=== PATIENT | male | born 1950 | race Caucasian/White ===

== ENCOUNTER 2020-03-12 19:14 | Emergency (ER) | payer MEDICARE, SELFPAY ==
[2020-03-12 19:30] VITALS: BP 168/85; PULSE 64; RESP 16; TEMP 36.4; O2SAT 97
--- NOTE | 2020-03-12 19:31 | ED.ANXIETY ---
HPI - Anxiety General Chief Complaint: Anxiety Stated Complaint: Anxiety/high blood pressure Time Seen by Provider: 03/12/20 19:31 Source: patient and RN notes reviewed Mode of arrival: ambulatory Limitations: no limitations History of Present Illness HPI narrative: Patient states he has had a long history of anxiety. Been on Prozac in the past which seemed to work well. He did state his doctor changed him to Lexapro several months ago. Then about 4 weeks ago he became gradually getting more anxious. Went to his primary care physician and has Lexapro was increased. He says that has not helped and he seems be taking more of his 0.5 Ativan at home. He also uses Ambien for sleep. He does know of any particular situation that is causing increased anxiety. He does note that his blood pressure seems to be going up. They were watches blood pressure at home and when it is elevated that makes him anxious as well. He denies any family history of high blood pressure. complaint: anxiety Onset (ago): week(s) (4) Symptoms: other ( Elevated blood pressure) Severity: moderate Quality: constant Place: home History of similar episodes: Yes Provoking factors: emotional stress Relieving factors: nothing Exacerbating factors: thinking about event Associated symptoms: denies other symptoms Related Data Home Medications Medication Instructions Recorded Confirmed escitalopram oxalate 20 mg PO DAILY 03/12/20 03/12/20 lorazepam 0.5 mg PO TID PRN 03/12/20 03/12/20 rosuvastatin [Crestor] 5 mg PO EVERY OTHER DAY 03/12/20 03/12/20 Allergies Allergy/AdvReac Type Severity Reaction Status Date / Time No Known Allergies Allergy Verified 03/12/20 19:37 Review of Systems Review of Systems: All systems reviewed & are unremarkable except as noted in HPI and below PMFSH Past Medical History Medical History (Updated 03/12/20 @ 20:33 by Radames Smith MD) Anxiety Hyperlipidemia Surgical History Surgical History (Updated 03/12/20 @ 19:34 by Radames Smith MD) Hx of cholecystectomy Social History Social History (Updated 03/12/20 @ 19:34 by Radames Smith MD) Smoking status: Never smoker Alcohol intake: never Substance use: never Exam Const: General: healthy appearing, no acute distress and alert Nutritional Appearance: well nourished Orientation/consciousness: patient oriented x3 HENMT: Head: normal to inspection Mouth: Yes moist mucous membranes Eyes: Conjunctivae: conjunctivae normal Pupils: Equal, round and reactive pupils present EOM: EOMs intact bilaterally Neck: Neck: normal visual inspection Resp: Effort & Inspection: normal respiratory effort Auscultation: clear to auscultation bilaterally Cardio: Rate: regular rate Rhythm: regular rhythm GI: GI Palp: Yes Soft to palpation Auscultation: normal bowel sounds Back/Spine/Pelvis: Cervical Spine: cervical ROM normal Thoracic/Lumbar Spine: thoraco-lumbar ROM normal Skin: General skin exam: normal color Rashes: no rashes Neuro: General: patient oriented x3, moves all extremities and no focal motor deficits Speech: normal speech Gait exam (Neuro): Normal gait present Extrem: General: normal to inspection and no clubbing, cyanosis or edema Psych: Appearance: grossly normal and well kempt Mental Status: mental status grossly normal Affect: Anxious affect present Thought content: Yes Normal thought content present Course Course Emergency Course: Patient was significantly improved after mg blood pressure came down nicely. I discussed with him that he needs to change his medication for his anxiety to something different. In the interim may want to consider increasing his Ativan until he can get his new medication to therapeutic dose. Vital Signs Vital signs: Vital Signs Temperature 36.4 C L 03/12/20 19:30 Pulse Rate 64 03/12/20 19:30 Respiratory Rate 16 03/12/20 19:30 Blood Pressure 168/85 H 03/12/20 19:30 Pulse Oximetry 97 07
[2020-03-12 20:19] VITALS: BP 124/77; PULSE 58; RESP 16; O2SAT 96
[2020-03-12 20:40] VITALS: BP 124/72; PULSE 55; RESP 16; O2SAT 96
== END 2020-03-12 20:40 | disposition home or self-care (01) ==
PROVIDERS: Emergency Provider Emergency Medicine
DX: F41.9 Anxiety disorder, unspecified (principal)
CPT/HCPCS: 96372; 99282; 99283; J2060

== ENCOUNTER 2020-03-31 01:38 | Emergency (ER) | payer MEDICARE, SELFPAY ==
[2020-03-31 01:47] VITALS: BP 149/70; PULSE 63; RESP 16; TEMP 37; O2SAT 97
--- NOTE | 2020-03-31 02:25 | ED.ANXIETY ---
HPI - Anxiety General Chief Complaint: Anxiety Stated Complaint: panic attake Source: patient Mode of arrival: ambulatory Limitations: no limitations History of Present Illness HPI narrative: This 69-year-old male has a long history of general anxiety disorder which has been controlled on Lexapro 10 mg daily and occasional Ativan 0.5 mg. Approximately 6-8 weeks ago his anxiety started worsening. He was switched to Luvox 50 mg twice daily recently without improvement. His anxiety has been worse over the last few weeks. He feels like the Luvox has made him more tired, resulting in him not being as active as he had been. He has fears of having a heart attack and of losing control. Thiis afternoon those symptoms worsened. After taking a total of 1 mg of Ativan his symptoms abated after several hours. They returned later this evening. . He took Ativan 0.5 and 1:00 a.m. and no other 0.5 at 1:15. He arrived in the ED about 1:30 because his symptoms were not improving. Rating his anxiety on a 1-10 scale he rated his anxiety about 8 to 9. He was instructed not to take more than 1.5 mg Ativan/day. At his appointment several days ago he was given a referral to psychiatrist. He sometimes feels his heart racing. His heart rate this evening was 68 b.p.m.. His symptoms are associated with his palms getting sweaty but no trembling, shortness of breath, smothering, choking, chest discomfort, nausea, dizziness, chills, paresthesias or derealization. Pt's previoius EKGs have been normal. Recent blood work was normal, including cholesterol. Besides TITA and hyperlipidemia he is in great health. He has no hx of heart disease or abnormal EKG. Pt's in the exam room. She repeatedly said she told her he did not need to go to the E.D. because he wasn't having chest pain; that he's fearful all the time about a heart attack, at which point pt. corrected her saying it was not all the time. Related Data Home Medications Medication Instructions Recorded Confirmed escitalopram oxalate [Lexapro] 20 mg PO DAILY 03/12/20 03/31/20 lorazepam [Ativan] 0.5 mg PO TID PRN 03/12/20 03/31/20 rosuvastatin [Crestor] 5 mg PO EVERY OTHER DAY 03/12/20 03/31/20 zolpidem [Ambien] See Rx Instructions .ROUTE .COMPLEX 03/31/20 03/31/20 Allergies Allergy/AdvReac Type Severity Reaction Status Date / Time No Known Allergies Allergy Verified 03/12/20 19:37 Review of Systems Constitutional: Constitutional: Reports no additional constitutional complaints, Denies chills and Denies fever(s) ENT: Reports system reviewed and no additional complaints, except as documented Cardiovascular: Cardiovascular: Reports no additional cardiovascular complaints Respiratory: Respiratory: Reports no additional respiratory complaints Gastrointestinal: Gastrointestinal: Reports no additional gastrointestinal complaints Musculoskeletal: Comments: Oftentimes his anxiety is associated with a feeling his muscles and joints don't move in a fluid fashion. Neurologic: Reports system reviewed and no additional complaints, except as documented Psychiatric: Psychiatric: Denies suicidal ideation Comments: He has been discouraged about his worsening anxiety but has no thoughts of hurting himself. PMFSH Past Medical History Medical History (Updated 03/31/20 @ 02:52 by Jose Hernandez MD) Anxiety Hyperlipidemia Hyperlipidemia Surgical History Surgical History (Updated 03/12/20 @ 19:34 by Radames Smith MD) Hx of cholecystectomy Social History Social History (Updated 03/31/20 @ 02:58 by Jose Hernandez MD) Social History: twin 12 year olds and one 8 y.o. child. Smoking status: Never smoker Alcohol intake: never Substance use: never Gender identity (if verbalized by the patient): Male Sexual Orientation (if Verbalized by the Patient): Straight or Heterosexual Exam Const: Orientation/consciousness: patient oriented x3 HENMT: Mouth: Yes moist
[2020-03-31 02:31] VITALS: BP 140/67; PULSE 70; RESP 16; TEMP 36.6; O2SAT 98
== END 2020-03-31 02:34 | disposition home or self-care (01) ==
PROVIDERS: Emergency Provider Family Medicine
DX: F41.9 Anxiety disorder, unspecified (principal)
CPT/HCPCS: 99281; 99282

== ENCOUNTER 2020-04-11 09:43 | Emergency (ER) | payer MEDICARE, SELFPAY ==
--- NOTE | ~2020-04-11 | XR_ITS ---
EXAMINATION: XR chest 2V DATE: 04/11/2020 10:27 INDICATION: Epigastric abdominal pain. Weight loss. TECHNIQUE: Frontal and lateral views of the chest were obtained. COMPARISON: None. FINDINGS: The chest demonstrates clear lungs without pneumonia, pleural effusion, or pneumothorax. Th e heart size is normal. Surgical clips in the right upper quadrant are likely from cholecystectomy. IMPRESSION: 1. No acute cardiopulmonary disease. Reviewed, dictated and finalized at location B.
--- NOTE | 2020-04-11 09:48 | ECG_ITS ---
Measurements Intervals [place] Rate: 58 P: 64 SC: 154 QRS: 48 QRSD: 102 T: 51 QT: 404 QTc: 400 Interpretive Statements SINUS BRADYCARDIA BASELINE ARTIFACT- I, II, III, AVR, AVL, AVF, V4 BORDERLINE ECG Electronically Signed On 04-11-2020 10:16:47 CDT by Bill Armstrong D.O.
[2020-04-11 10:00] VITALS: BP 166/93; PULSE 68; RESP 16; TEMP 36.8; O2SAT 97
--- NOTE | 2020-04-11 10:08 | ED.ANXIETY ---
HPI - Anxiety General Chief Complaint: Anxiety Stated Complaint: anxiety Time Seen by Provider: 04/11/20 10:08 Source: patient and family Mode of arrival: ambulatory Limitations: no limitations History of Present Illness HPI narrative: 69-year-old man comes in today complaining of increased anxiety over the last few weeks. He states that his symptoms are getting worse and last night he was unable to sleep. States that he has discomfort in his abdomen but no nausea and denies headache, vomiting, chest pain, shortness breath. He states that he has a poor appetite and has lost 10 lb in the last month. He denies suicidal ideation and denies recent significant stressors. His doctor started him on fluvoxamine approximately 1 week ago. He takes Ativan 3 times a day, 0.25 in the morning, 0.5 in the afternoon, and 0.25 in the evening with Ambien. patient states that his doctor instructed him to decrease the Ativan dose to twice a day however he was unable to tolerate it and and is back to t.i.d. for the last week. MD complaint: anxiety Onset (ago): week(s) (3) Severity: moderate Quality: constant Place: home History of similar episodes: Yes Provoking factors: medication change Relieving factors: nothing Exacerbating factors: nothing Related Data Home Medications Medication Instructions Recorded Confirmed lorazepam [Ativan] 0.5 mg PO TID PRN 03/12/20 04/11/20 rosuvastatin [Crestor] 5 mg PO EVERY OTHER DAY 03/12/20 04/11/20 zolpidem [Ambien] See Rx Instructions .ROUTE .COMPLEX 03/31/20 04/11/20 fluvoxamine 50 mg PO DAILY 04/11/20 04/11/20 Allergies Allergy/AdvReac Type Severity Reaction Status Date / Time No Known Allergies Allergy Verified 03/12/20 19:37 Review of Systems Constitutional: Constitutional: Denies chills and Denies fever(s) Eyes: Eyes: Denies change in vision and Denies photophobia ENT: Denies dysphagia, Denies nasal congestion and Denies sore throat Cardiovascular: Cardiovascular: Denies chest pain and Denies radiating jaw, neck or arm pain Respiratory: Respiratory: Denies cough, Denies dyspnea and Denies wheezing Gastrointestinal: Gastrointestinal: Denies abdominal pain, Denies diarrhea, Denies nausea and Denies vomiting Musculoskeletal: Musculoskeletal: Denies arthralgias and Denies joint swelling Integumentary/Breasts: Skin/Breast: Denies pruritus, Denies erythema and Denies rash Neurologic: Denies vertigo, Denies dizziness, Denies syncope, Reports headache(s), Denies focal weakness and Denies numbness Psychiatric: Psychiatric: Reports anxiety, Denies homicidal ideation and Denies suicidal ideation Endocrine: Endocrine: Denies fatigue Hematologic/Lymphatic: Hematologic/Lymphatic: Denies easy bleeding and Denies easy bruising Allergic/Immunologic: Allergic/Immunologic: Denies lip swelling and Denies wheezing PMFSH Past Medical History Medical History Anxiety Hyperlipidemia Hyperlipidemia Surgical History Surgical History Hx of cholecystectomy Social History Social History Social History: twin 12 year olds and one 8 y.o. child. Smoking status: Never smoker Alcohol intake: never Substance use: never Gender identity (if verbalized by the patient): Male Exam Const: General: healthy appearing and alert Orientation/consciousness: patient oriented x3 Limitations: no limitations Other: [id number] acute distress. Flat affect. HENMT: Head: normal to inspection Ears: external ears normal, TM's normal bilaterally and EAC's normal Face and sinus: normal facial exam Mouth: Yes moist mucous membranes Throat: posterior oropharynx normal Eyes: Conjunctivae: conjunctivae normal Pupils: Equal, round and reactive pupils present EOM: EOMs intact bilaterally Resp: Effort & Inspection: normal respiratory
[2020-04-11 10:20] LABS: Basophils Absolute Auto 0.01 K/mm3 (0.00-0.10); Basophils Percent Auto 0.1 % (0.0-1.0); Eosinophils Absolute Auto 0.07 K/mm3 (0.02-0.50); Eosinophils Percent Auto 0.8 % (1.0-6.0); Hematocrit 41.5 % (37.0-46.0); Hemoglobin 14.4 g/dL (12.4-15.3); Immature Granulocyte Absolute 0.01 K/mm3 (0.00-0.00); Immature Granulocyte Percent A 0.1 % (0.0-0.0); Lymphocytes Absolute Auto 1.63 K/mm3 (1.10-4.50); Lymphocytes Percent Auto 19.2 % (18.0-42.0); Mean Corpuscular HGB Conc 34.7 g/dL (32.0-36.0); Mean Corpuscular Hemoglobin 30.3 pg (27.0-31.0); Mean Corpuscular Volume 87.2 fL (78.0-102.0); Monocytes Absolute Auto 0.76 K/mm3 (0.10-0.90); Neutrophils Percent Auto 70.8 % (50.0-70.0); Platelet Count Result 318 K/mm3 (150-420); Red Blood Count 4.76 M/mm3 (4.70-6.10); Red Cell Distribution Width 11.9 % (11.6-14.4); White Blood Count 8.5 K/mm3 (4.8-10.8)
[2020-04-11 10:33] LABS: D Dimer 0.19 mg/L (0.19-0.50)
[2020-04-11 10:34] LABS: Add Urine Microscopic? NO; Appearance Urine Clear (Clear); Bilirubin Urine Negative (Negative); Blood Urine Negative (Negative); Color Urine Yellow (Yellow); Glucose Urine UA Negative (Negative); Ketones Urine Negative (Negative); Leukocyte Esterase Ur Negative (Negative); Nitrate Urine Negative (Negative); Protein Urine Negative (Negative); Urobilinogen Urine 0.2 mg/dL (0.2-1.0)
[2020-04-11 10:48] LABS: Alanine Aminotransferase 45 U/L (16-63); Albumin Level 3.7 g/dL (3.4-5.0); Alkaline Phosphatase 86 U/L (46-116); Anion Gap 6 mmol/L (8-16); Aspartate Amino Transferase 34 U/L (15-37); Bilirubin,Total 0.6 mg/dL (0.00-1.00); Blood Urea Nitrogen 9 mg/dL (7-18); Calcium 8.9 mg/dL (8.5-10.1); Carbon Dioxide 30 mmol/L (21-32); Chloride 93 mmol/L (98-108); Estimated CRCL calculation 66 ml/min; Estimated Glomerular Filt Rate > 60; Glucose 109 mg/dL (70-99); Osmolality Calculated 267 mOsm/kg (285-295); Potassium 4.1 mmol/L (3.5-5.1); Sodium 129 mmol/L (136-145); Total Protein 7.2 g/dL (6.4-8.2)
[2020-04-11 10:51] LABS: Thyroid Stimulating Hormone Reflex 0.83 u/IU/mL (0.36-3.74)
[2020-04-11] MEDS: hydrOXYzine HCL 25 MG TABLET PO (11:37)
[2020-04-11 11:41] VITALS: RESP 13; O2SAT 99
== END 2020-04-11 11:40 | disposition home or self-care (01) ==
PROVIDERS: Emergency Provider Emergency Medicine; PCP Nurse Practitioner
DX: F41.9 Anxiety disorder, unspecified (principal); E78.5 Hyperlipidemia, unspecified
CPT/HCPCS: 36415; 71046; 80053; 81003; 84443; 85025; 85380; 93005; 99283; 99284; A9270

== ENCOUNTER 2020-04-26 17:53 | Emergency (ER) | payer MEDICARE, SELFPAY ==
--- NOTE | ~2020-04-26 | XR_ITS ---
EXAMINATION: XR abdomen obstructive series DATE: 04/26/2020 18:30 INDICATION: Constipation TECHNIQUE: Supine and upright views of the abdomen. FINDINGS: No prior studies for comparison. The visualized lung parenchyma is normal.. There is a nonobstructive bowel gas pattern. Large amount of retained fecal material in the colon. Gas and stool are seen throughout the colon to the level of the rectum. There is no free air. IMPRESSION: 1. No acute abdominal abnormality. Reviewed, dictated and finalized at location A.
--- NOTE | ~2020-04-26 | CT_ITS ---
EXAMINATION: CT abdomen pelvis w con DATE: 04/26/2020 19:11 INDICATION: Constipation. Diffuse abdominal pain. Increased white blood cell count. TECHNIQUE: Computed tomography (CT) of the abdomen and pelvis was performed with 100 cc Omnipaque 350 intravenous contrast. The dose-length product was 553.67 mGy-cm. Automated exposure control and iter ative reconstruction technique were employed. COMPARISON: None. FINDINGS: Lung bases are unremarkable. Heart size is normal. No significant pleural or pericardial ef fusion. There is atherosclerosis without aneurysm. Status post cholecystectomy. The liver, spleen, pancreas, adrenal glands and kidneys are unremarkable . No free air or free fluid. There is moderate colonic fecal loading. No lymphadenopathy. No acute os seous abnormality. IMPRESSION: 1. No acute abdominal abnormality. Fecal impaction of the colon and rectum. Reviewed, dictated and finalized at location A.
--- NOTE | 2020-04-26 18:05 | ECG_ITS ---
Measurements Intervals [place] Rate: 92 P: 73 PA: 147 QRS: 73 QRSD: 92 T: 51 QT: 341 QTc: 424 Interpretive Statements SINUS RHYTHM MINIMAL Q WAVES- INFERIOR LEADS BORDERLINE ECG Electronically Signed On 04-26-2020 21:22:48 CDT by Bill Armstrong D.O.
[2020-04-26 18:06] VITALS: BP 138/79; PULSE 108; RESP 24; TEMP 37; O2SAT 98
[2020-04-26 18:20] LABS: Hematocrit 43.4 % (37.0-46.0); Hemoglobin 15.3 g/dL (12.4-15.3); Mean Corpuscular HGB Conc 35.3 g/dL (32.0-36.0); Mean Corpuscular Hemoglobin 30.1 pg (27.0-31.0); Mean Corpuscular Volume 85.4 fL (78.0-102.0); Mean Platelet Volume 7.9 fl (8.7-11.0); Platelet Count Result 362 K/mm3 (150-420); Red Blood Count 5.08 M/mm3 (4.70-6.10); Red Cell Distribution Width 11.7 % (11.6-14.4)
[2020-04-26 18:31] LABS: White Blood Count 23.3 K/mm3 (4.8-10.8)
[2020-04-26 18:50] LABS: Alanine Aminotransferase 43 U/L (16-63); Albumin Level 3.9 g/dL (3.4-5.0); Alkaline Phosphatase 107 U/L (46-116); Anion Gap 9 mmol/L (8-16); Aspartate Amino Transferase 27 U/L (15-37); Bilirubin,Total 0.5 mg/dL (0.00-1.00); Blood Urea Nitrogen 12 mg/dL (7-18); Calcium 8.9 mg/dL (8.5-10.1); Carbon Dioxide 27 mmol/L (21-32); Chloride 91 mmol/L (98-108); Estimated CRCL calculation 67 ml/min; Estimated Glomerular Filt Rate > 60; Glucose 120 mg/dL (70-99); Osmolality Calculated 264 mOsm/kg (285-295); Potassium 4.2 mmol/L (3.5-5.1); Sodium 127 mmol/L (136-145); Thyroid Stimulating Hormone 1.11 uIU/mL (0.36-3.74); Total Protein 7.7 g/dL (6.4-8.2)
[2020-04-26 18:51] LABS: Lipase 135 U/L (73-393); Troponin I < 0.02 ng/mL (0.00-0.056)
[2020-04-26] MEDS: SODIUM CHLORIDE 0.9% IV 1,000 ML 999 ML IV CONT (18:51)
[2020-04-26 18:54] LABS: Lactic Acid 0.9 mmol/L (0.4-2.0)
[2020-04-26 19:44] VITALS: BP 135/78; PULSE 90; RESP 18; O2SAT 98
[2020-04-26 19:49] LABS: Add Urine Microscopic? YES; Appearance Urine Clear (Clear); Bilirubin Urine Negative (Negative); Blood Urine Negative (Negative); Color Urine Yellow (Yellow); Glucose Urine UA Negative (Negative); Ketones Urine Trace (Negative); Leukocyte Esterase Ur Negative (Negative); Nitrate Urine Negative (Negative); Protein Urine Negative (Negative); Specific Grav Ur 1.015 (1.010-1.020); Urobilinogen Urine 0.2 mg/dL (0.2-1.0)
[2020-04-26 19:59] LABS: Amorphous Sediment Urine Few; Bacteria Urine Trace /hpf; RBC Urine 0-2 /hpf (0-2); Squamous Epithelial Cell Urine Rare /hpf (Few); WBC Urine 0-3 /hpf (0-3)
--- NOTE | 2020-04-26 20:20 | ED.GENADULT ---
HPI - General Adult General Chief complaint: Unspecified Stated complaint: constipated History of Present Illness HPI narrative: this 69-year-old gentleman presents with constipation for the last 5 weeks has tried [id number] preparations with minimal relief. Had a small bowel movement approximately 1 week ago, currently there is no nausea vomiting no fever or chills no dysuria, does have difficulty with passing urine has a history of hyperlipidemia. Currently there is no nausea vomiting, does have some mild dull abdominal discomfort, his abdomen is soft. Currently no chest pain, no shortness of breath no fever or chills. Onset (ago): week(s) Radiation: abdomen Severity scale (1-10): 3 Quality: dull Associated symptoms: other ( constipation) Related Data Home Medications Medication Instructions Recorded Confirmed lorazepam [Ativan] 0.5 mg PO TID PRN 03/12/20 04/26/20 rosuvastatin [Crestor] 5 mg PO EVERY OTHER DAY 03/12/20 04/26/20 zolpidem [Ambien] See Rx Instructions .ROUTE .COMPLEX 03/31/20 04/26/20 fluvoxamine 50 mg PO DAILY 04/11/20 04/26/20 docusate sodium 100 mg PO DAILY 04/26/20 04/26/20 Allergies Allergy/AdvReac Type Severity Reaction Status Date / Time No Known Allergies Allergy Verified 03/12/20 19:37 Review of Systems Review of Systems: All systems reviewed & are unremarkable except as noted in HPI and below PMFSH Past Medical History Medical History Anxiety Hyperlipidemia Hyperlipidemia Surgical History Surgical History Hx of cholecystectomy Social History Social History Social History: twin 12 year olds and one 8 y.o. child. Smoking status: Never smoker Alcohol intake: never Substance use: never Gender identity (if verbalized by the patient): Male Sexual Orientation (if Verbalized by the Patient): Straight or Heterosexual Exam Const: General: no acute distress Orientation/consciousness: patient oriented x3 HENMT: Head: normal to inspection Eyes: Conjunctivae: conjunctivae normal Pupils: Equal, round and reactive pupils present Neck: Neck: normal visual inspection, no lymphadenopathy and no meningeal signs Chest: Chest palpation & inspection: normal inspection of the chest Resp: Effort & Inspection: normal respiratory effort Cardio: Rate: regular rate Rhythm: regular rhythm GI: GI Palp: Yes Soft to palpation and Yes Tenderness to palpation present (GI) : General: Yes no CVA tenderness Urinary Catheter: Urinary Catheter: urine clear Back/Spine/Pelvis: Back: no CVA tenderness Skin: General skin exam: normal color Rashes: no rashes Extrem: General: normal to inspection Psych: Appearance: grossly normal Mental Status: mental status grossly normal Affect: normal affect Thought content: Yes Normal thought content present Course Course Emergency Course: Patient had soapsuds enema, with some minimal disimpaction, with CT scan showing a large amount of stool in the rectal vault, did a manual disimpaction which are removed stool that was some in the rectal vault. Vital Signs Vital signs: Vital Signs Temperature 37.0 C 04/26/20 18:06 Pulse Rate 108 H 04/26/20 18:06 Respiratory Rate 24 H 04/26/20 18:06 Blood Pressure 138/79 04/26/20 18:06 Pulse Oximetry 98 04/26/20 18:06 Temperature 37.0 C 04/26/20 18:06 Pulse Rate 90 04/26/20 19:44 Respiratory Rate 18 04/26/20 19:44 Blood Pressure 135/78 04/26/20 19:44 Pulse Oximetry 98 04/26/20 19:44 Medical Decision Making Vital Signs Vital Signs: Vital Signs Temperature 37.0 C 04/26/20 18:06 Pulse Rate 108 H 04/26/20 18:06 Respiratory Rate 24 H 04/26/20 18:06 Blood Pressure 138/79 04/26/20 18:06 Pulse Oximetry 98 04/26/20 18:06 Temperature 37.0 C 04/26/20 18:06 Pulse Rate 90
[2020-04-26] MEDS: MAGNESIUM CITRATE 300 ML BTL PO (20:56)
[2020-04-26 21:16] VITALS: BP 136/77; PULSE 88; RESP 18; TEMP 36.8; O2SAT 98
== END 2020-04-26 21:17 | disposition home or self-care (01) ==
PROVIDERS: Emergency Provider Emergency Medicine; PCP Nurse Practitioner
DX: K59.09 Other constipation (principal); F41.9 Anxiety disorder, unspecified
CPT/HCPCS: 36415; 51701; 74019; 74177; 80053; 81001; 83605; 83690; 84443; 84484; 85027; 87040; 93005; 96361; 96365; 99283; 99284; A9270; J0696; J7030; Q9965

== ENCOUNTER 2020-06-08 16:01 | Outpatient (RCR) | payer MEDICARE, SELFPAY ==
--- NOTE | 2020-06-11 17:52 | PTOPEVAL ---
Thank you for referring Kendall Torres to [facility].? The patient is scheduled to be seen for therapy? ___3_x/week for 9 visits. Please review, sign, date and return this plan of care LUIS. I agree with and certify that the following plan of care is medically necessary. Referring Physician Date Admitting Provider: Attending Provider: Estela Cabezas, BENDER MACHINE Referring Provider: *PT Outpatient Evaluation Start: 06/08/20 16:06 Freq: Status: Active Protocol: Document 06/08/20 16:06 ANGIE (Rec: 06/08/20 16:50 ANGIE [email or web address]) Therapy Assessment Status Assessment Status Assessment Status Evaluation Outpatient Past Medical History Neurological History Hx Neurological Disorders No Significant History Cardiovascular History Hx Hypercholesterolemia Yes Respiratory History Hx Respiratory Disorders No Significant History Gastrointestinal History Hx Cholecystectomy Yes Genitourinary History Hx Genitourinary Disorders No Significant History Musculoskeletal History Hx Musculoskeletal Disorders No Significant History Hematological History Hx Hematological Disorders No Significant History Endocrine History Hx Endocrine Disorders No Significant History HEENT History Hx HEENT Disorders No Significant History Integumentary History Hx Skin Disorders No Significant History Reproductive History Hx Reproductive Disorders No Significant History Psychosocial History Hx Anxiety Yes Hx Depression Yes Pain History History of Any Previous or Ongoing No Significant History Instance of Pain Anesthesia History Hx Anesthesia Reactions No Significant History Evaluation Information Problem Diagnosis weakness Onset 04/08/20 Subjective Information Pt. reports that he had a Query Text:As Reported By Patient/ change in depression Family medication 2 months ago and states that he developed weakness and fatigue. He reports that doctor took him off the medication and he now has started lexapro. He states that he deals with alot of anxiety that makes activity difficult. 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 Pt. reports that he has been sedentary for the past 2 monhts. His is present and states that he sleeps most of the day. He
--- NOTE | 2020-06-12 16:59 | PCPTNOTE ---
patient called and cancelled appt due to not feeling well. ROSARIO
--- NOTE | 2020-06-13 14:56 | PCPTNOTE ---
patient called and cancelled appt today. ROSARIO
--- NOTE | 2020-07-19 15:53 | PCPTNOTE ---
patient called and cancelled appt today LJ
--- NOTE | 2020-08-10 11:36 | PCPTNOTE ---
Mr. Torres attended a total of 6 treatment sessions. He demonstrate poor compliance throughout the duration of his rehab. Talked with the pt. and his regarding the patient following up with his doctor regarding continued reports of fatigue and depression. Pt. has been discharged from our care due to lack of compliance with rehab in regards to home exercise performance and attendance. Franco Smith, MPT
== END 2020-07-24 14:48 | disposition home or self-care (01) ==
LOC: CHSPT 16:01
PROVIDERS: PCP Nurse Practitioner; Visit Provider Nurse Practitioner
DX: R53.1 Weakness (principal)
CPT/HCPCS: 97110; 97161; 97530

== ENCOUNTER 2020-07-16 12:54 | Emergency (ER) | payer MEDICARE, SELFPAY ==
--- NOTE | ~2020-07-16 | XR_ITS ---
XR chest 2V DATE: 07/16/2020 14:12 INDICATION: Chest pain for one day TECHNIQUE: 2 views COMPARISON: 04/11/2020 2 view chest FINDINGS: Normal heart size. No hilar or mediastinal enlargement. No pulmonary infiltrate or consolid ation, pleural effusion or pulmonary vascular congestion or pneumothorax. Surgical clips overlie the right upper quadrant, consistent with cholecystectomy. IMPRESSION: No active cardiopulmonary disease Status post cholecystectomy Reviewed, dictated and finalized at location B. ING AND COMPOSITE FABRICATOR
[2020-07-16 13:00] VITALS: BP 126/90; PULSE 98; RESP 20; TEMP 36.5; O2SAT 100
--- NOTE | 2020-07-16 13:01 | ED.CHESTPAIN ---
HPI - Chest Pain General Chief Complaint: Chest Pain Stated Complaint: chest pain Time Seen by Provider: 07/16/20 13:01 Source: patient, family and RN notes reviewed Mode of arrival: ambulatory Limitations: no limitations History of Present Illness HPI narrative: Patient states that last evening he began having some chest heaviness he said 4/10. He denies any other symptoms such as nausea, vomiting, shortness of breath, diaphoresis. The pain does not move anywhere. It seemed to go away last evening and then returned again today. He admitted to the nurse that he has been very anxious. He has have been bickering and he is afraid that she is going to leave him. MD complaint: chest heaviness Onset (ago): day(s) (1) Timing of current episode: episodic Prior episodes: No Onset: during rest Pain location: left chest Pain radiation: none Severity: mild Pain scale (0-10): 4 Quality: heaviness Relieving factors: nothing Exacerbating factors: stress Treatment prior to arrival: aspirin Risk Factors Coronary artery disease risk factors: none Thoracic aortic dissection risk factors: none Related Data Home Medications Medication Instructions Recorded Confirmed lorazepam [Ativan] 0.5 mg PO TID PRN 03/12/20 07/16/20 rosuvastatin [Crestor] 5 mg PO EVERY OTHER DAY 03/12/20 07/16/20 zolpidem [Ambien] 5 mg PO HS 03/31/20 07/16/20 fluvoxamine 50 mg PO DAILY 04/11/20 07/16/20 docusate sodium 100 mg PO DAILY 04/26/20 07/16/20 escitalopram oxalate 20 mg PO DAILY 07/16/20 07/16/20 Allergies Allergy/AdvReac Type Severity Reaction Status Date / Time No Known Allergies Allergy Verified 03/12/20 19:37 Review of Systems Constitutional: Constitutional: Denies chills and Denies fever(s) Eyes: Eyes: Reports no additional eye complaints ENT: Reports system reviewed and no additional complaints, except as documented Cardiovascular: Cardiovascular: Denies diaphoresis, Denies rapid heart rate and Denies slow heart rate Respiratory: Respiratory: Denies cough and Denies dyspnea Gastrointestinal: Gastrointestinal: Denies nausea and Denies vomiting Musculoskeletal: Musculoskeletal: Reports no additional musculoskeletal complaints Integumentary/Breasts: Skin/Breast: Reports system reviewed and no additional complaints, except as docu Neurologic: Reports system reviewed and no additional complaints, except as documented Psychiatric: Psychiatric: Reports anxiety PMFSH Past Medical History Medical History (Updated 07/16/20 @ 14:47 by Radames Smith MD) Anxiety Hyperlipidemia Surgical History Surgical History Hx of cholecystectomy Social History Social History Social History: twin 12 year olds and one 8 y.o. child. Smoking status: Never smoker Alcohol intake: never Substance use: never Gender identity (if verbalized by the patient): Male Exam Const: General: healthy appearing and no acute distress Nutritional Appearance: well nourished and thin Orientation/consciousness: patient oriented x3 Other: anxious HENMT: Head: normal to inspection Ears: external ears normal Eyes: Conjunctivae: conjunctivae normal Pupils: Equal, round and reactive pupils present EOM: EOMs intact bilaterally Neck: Neck: normal visual inspection Resp: Effort & Inspection: normal respiratory effort Auscultation: clear to auscultation bilaterally Cardio: Rate: regular rate Rhythm: regular rhythm Heart sounds: no murmurs GI: GI Palp: Yes Soft to palpation and No Tenderness to palpation present (GI) Auscultation: normal bowel sounds Back/Spine/Pelvis: Cervical Spine: cervical ROM normal Thoracic/Lumbar Spine: thoraco-lumbar ROM normal Skin: General skin exam: normal color Rashes: no rashes Neuro: General: patient oriented x3, moves all extremities and no focal motor deficits Speech: normal speech Gait exam (Neur
--- NOTE | 2020-07-16 13:11 | ECG_ITS ---
Measurements Intervals [place] Rate: 86 P: 57 CA: 116 QRS: 73 QRSD: 91 T: 43 QT: 358 QTc: 430 Interpretive Statements SINUS RHYTHM WITH SHORT CA INTERVAL DELAYED PRECORDIAL R/S TRANSITION MINIMAL Q WAVES- INFERIOR LEADS BORDERLINE ECG Electronically Signed On 07-16-2020 15:00:59 [employer] by Bill Armstrong D.O.
[2020-07-16 13:30] VITALS: BP 116/86; PULSE 94; RESP 16; O2SAT 100
[2020-07-16 13:48] LABS: Basophils Absolute Auto 0.02 K/mm3 (0.00-0.10); Basophils Percent Auto 0.2 % (0.0-1.0); Eosinophils Absolute Auto 0.15 K/mm3 (0.02-0.50); Eosinophils Percent Auto 1.4 % (1.0-6.0); Hematocrit 40.8 % (37.0-46.0); Immature Granulocyte Absolute 0.04 K/mm3 (0.00-0.00); Immature Granulocyte Percent A 0.4 % (0.0-0.0); Lymphocytes Absolute Auto 2.14 K/mm3 (1.10-4.50); Lymphocytes Percent Auto 20.3 % (18.0-42.0); Mean Corpuscular HGB Conc 34.3 g/dL (32.0-36.0); Mean Corpuscular Hemoglobin 29.8 pg (27.0-31.0); Mean Corpuscular Volume 86.8 fL (78.0-102.0); Mean Platelet Volume 8.2 fl (8.7-11.0); Monocytes Absolute Auto 0.81 K/mm3 (0.10-0.90); Monocytes Percent Auto 7.7 % (2.0-11.0); Neutrophils Absolute Auto 7.4 K/mm3 (1.7-7.2); Platelet Count Result 385 K/mm3 (150-420); Red Cell Distribution Width 12.1 % (11.6-14.4); White Blood Count 10.5 K/mm3 (4.8-10.8)
[2020-07-16 14:00] VITALS: BP 132/84; PULSE 83; RESP 15; O2SAT 100
[2020-07-16 14:10] LABS: Alanine Aminotransferase 35 U/L (16-63); Albumin Level 3.7 g/dL (3.4-5.0); Alkaline Phosphatase 79 U/L (46-116); Anion Gap 6 mmol/L (8-16); Aspartate Amino Transferase 24 U/L (15-37); Bilirubin,Total 0.4 mg/dL (0.00-1.00); Blood Urea Nitrogen 15 mg/dL (7-18); Calcium 9.1 mg/dL (8.5-10.1); Carbon Dioxide 28 mmol/L (21-32); Chloride 98 mmol/L (98-108); Estimated CRCL calculation 72 ml/min; Estimated Glomerular Filt Rate > 60; Glucose 103 mg/dL (70-99); Osmolality Calculated 274 mOsm/kg (285-295); Potassium 4.5 mmol/L (3.5-5.1); Sodium 132 mmol/L (136-145); Total Protein 7.2 g/dL (6.4-8.2)
[2020-07-16 14:11] LABS: Troponin I < 0.02 ng/mL (0.00-0.056)
[2020-07-16 14:12] LABS: CRP < 0.2 mg/dL (0.0-0.9)
[2020-07-16] MEDS: LORazepam (*CRX) 0.5 MG TABLET PO (14:28)
[2020-07-16 14:30] VITALS: BP 126/81; PULSE 73; RESP 14; O2SAT 100
[2020-07-16 14:58] VITALS: BP 141/86; PULSE 85; RESP 18; O2SAT 98
== END 2020-07-16 15:03 | disposition home or self-care (01) ==
PROVIDERS: Emergency Provider Emergency Medicine; PCP Family Medicine
DX: F41.9 Anxiety disorder, unspecified (principal); R07.89 Other chest pain
CPT/HCPCS: 36415; 71046; 80053; 84484; 85025; 86140; 93005; 99283; 99284; A9270

== ENCOUNTER 2023-02-19 22:27 | Emergency (ER) | payer MEDICARE, SELFPAY ==
[2023-02-19] VITALS (8 sets, daily range): BP systolic 105–159; BP diastolic 74–87; PULSE 113–175; RESP 11–20; TEMP 36.6–36.8; O2SAT 95–98
--- NOTE | ~2023-02-19 | XR_ITS ---
EXAMINATION: XR chest 1V portable Exam Date/Time: 02/19/2023 22:40 CDT HISTORY: chest pain with shortness of breath/TACHYCARDIA Comparison: 07/16/2020. RESULT: Lines, tubes, and devices: None. Lungs and pleura: Streaky bibasilar pulmonary opacities. Cardiomediastinal silhouette: Stable. Other: No acute osseous or upper abdominal finding. IMPRESSION: No acute cardiopulmonary process. Bibasilar scar/atelectasis. Reviewed, dictated and finalized at location K.
--- NOTE | 2023-02-19 22:34 | ECG_ITS ---
Measurements Intervals [place] Rate: 177 P: [place]: 0 QRS: 42 QRSD: 95 T: 60 QT: 222 QTc: 381 Interpretive Statements ATRIAL FIBRILLATION WITH RAPID VENTRICULAR RESPONSE NONSPECIFIC ST ABNORMALITY ABNORMAL ECG COMPARED TO ECG 07/16/2020 13:25:21 ATRIAL FIBRILLATION NOW PRESENT Electronically Signed On 02-20-2023 8:01:47 CDT by Franco Reyna M.D.
[2023-02-19 22:45] LABS: Basophils Absolute Auto 0.02 K/mm3 (0.00-0.10); Basophils Percent Auto 0.1 % (0.0-1.0); Eosinophils Absolute Auto 0.08 K/mm3 (0.02-0.50); Eosinophils Percent Auto 0.6 % (1.0-6.0); Hematocrit 42.1 % (37.0-46.0); Hemoglobin 13.8 g/dL (12.4-15.3); Immature Granulocyte Absolute 0.06 K/mm3 (0.00-0.00); Immature Granulocyte Percent A 0.4 % (0.0-0.0); Lymphocytes Absolute Auto 3.79 K/mm3 (1.10-4.50); Lymphocytes Percent Auto 27.5 % (18.0-42.0); Mean Corpuscular HGB Conc 32.8 g/dL (32.0-36.0); Mean Corpuscular Hemoglobin 29.8 pg (27.0-31.0); Mean Corpuscular Volume 90.9 fL (78.0-102.0); Mean Platelet Volume 8.9 fl (8.7-11.0); Monocytes Percent Auto 7.3 % (2.0-11.0); Neutrophils Absolute Auto 8.8 K/mm3 (1.7-7.2); Neutrophils Percent Auto 64.1 % (50.0-70.0); Platelet Count Result 291 K/mm3 (150-420); Red Blood Count 4.63 M/mm3 (4.70-6.10); Red Cell Distribution Width 12.7 % (11.6-14.4); White Blood Count 13.8 K/mm3 (4.8-10.8)
[2023-02-19] MEDS: ASPIRIN 81 MG CHEWABLE TABLET 324 MG PO (22:46)
[2023-02-19] MEDS: dilTIAZem HCl INJ 25 MG/5 ML VIAL 5 MG IV PUSH ×3 (22:49→23:32)
[2023-02-19 22:56] LABS: Partial Thromboplastin Time 25.5 SEC (23.90-30.70); Prothrombin Time 10.9 Seconds (9.50-12.10)
[2023-02-19 22:57] LABS: D Dimer 0.19 mg/L (0.19-0.50)
[2023-02-19 23:06] LABS: Alanine Aminotransferase 41 U/L (16-63); Albumin Level 3.9 g/dL (3.4-5.0); Alkaline Phosphatase 90 U/L (46-116); Anion Gap 6 mmol/L (8-16); Aspartate Amino Transferase 42 U/L (15-37); Bilirubin,Total 0.4 mg/dL (0.00-1.00); Blood Urea Nitrogen 19 mg/dL (7-18); Calcium 8.3 mg/dL (8.5-10.1); Carbon Dioxide 32 mmol/L (21-32); Chloride 100 mmol/L (98-108); Estimated CRCL calculation 62 ml/min; Estimated Glomerular Filt Rate > 60; Glucose 96 mg/dL (70-99); Lipase 45 U/L (16-77); NT Pro B Type Natriuretic Pept 334 pg/mL (0-125); Osmolality Calculated 288 mOsm/kg (285-295); Potassium 4.1 mmol/L (3.5-5.1); Sodium 138 mmol/L (136-145); Thyroid Stimulating Hormone 1.82 uIU/mL (0.36-3.74); Total Protein 7.5 g/dL (6.4-8.2)
[2023-02-19 23:09] LABS: CRP < 0.5 mg/dL (0.0-0.9)
[2023-02-19 23:10] LABS: Troponin I 8.1 ng/L (0.00-60.4)
[2023-02-19 23:45] LABS: Appearance Urine Clear (Clear); Bilirubin Urine Negative (Negative); Blood Urine Negative (Negative); Color Urine Light Yellow (Yellow); Glucose Urine UA Negative (Negative); Ketones Urine Negative (Negative); Leukocyte Esterase Ur Negative LEU/UL (Negative); Nitrate Urine Negative (Negative); Protein Urine Negative (Negative); Urobilinogen Urine 0.2 mg/dL (0.2-1.0)
[2023-02-19 23:47] LABS: Add Urine Microscopic? NO
[2023-02-19 23:52] LABS: Amphetamine Screen Urine Negative (Negative); Barbiturate Screen Urine Negative (Negative); Benzodiazepines Screen Urine Negative (Negative); Cannabinoid Screen Urine Negative (Negative); Cocaine Screen Urine Negative (Negative); Methadone Screen Urine Negative (Negative); Opiate Screen Urine Negative (Negative); Phencyclidine Screen Urine Negative (Negative)
[2023-02-19] MEDS: SODIUM CHLORIDE 0.9% IV 500 ML 999 ML IV CONT (23:54)
[2023-02-20] VITALS (16 sets, daily range): BP systolic 106–126; BP diastolic 74–80; PULSE 99–134; RESP 9–27; TEMP 36.7–37.2; O2SAT 95–97
--- NOTE | 2023-02-20 00:14 | ED.ARRPALP ---
HPI - Arrhythmia/Palpitations General Chief Complaint: Arrhythmia/Palpitations Stated Complaint: Chest Pain Time Seen by Provider: 02/19/23 22:32 Source: patient and family Mode of arrival: ambulatory Limitations: no limitations History of Present Illness HPI narrative: this is a 72-year-old male that presents with a rapid heart rate with some atrial fibrillation and heart rate in the 160s patient's vitals are stable initially blood pressure 159/87 with a heart rate of 175 there is currently no chest pain no shortness of breath no nausea vomiting abdominal pain no dysuria no fever chills. The patient has a history of hyperlipidemia and depression and anxiety. Patient apparently was outdoors doing yd work and according to patient became overheated came in doors felt a little clammy and notice that he was having palpitations and presented to the emergency department. complaint: rapid heart beat Onset (ago): hour(s) Duration: constant Severity: moderate Context: occurred during rest Arrhythmia history: atrial fibrillation and SVT Associated symptoms: denies other symptoms Related Data Home Medications Medication Instructions Recorded Confirmed rosuvastatin 5 mg tablet (Crestor) 5 mg PO EVERY OTHER DAY 03/12/20 02/19/23 escitalopram oxalate 20 mg tablet 20 mg PO DAILY 07/16/20 02/19/23 Allergies Allergy/AdvReac Type Severity Reaction Status Date / Time No Known Allergies Allergy Verified 03/12/20 19:37 Review of Systems Review of Systems: All systems reviewed & are unremarkable except as noted in HPI and below PMFSH Past Medical History Medical History Anxiety Hyperlipidemia Surgical History Surgical History Hx of cholecystectomy Social History Social History Social History: twin 12 year olds and one 8 y.o. child. Smoking status: Never smoker Alcohol intake: never Substance use: never Gender identity (if verbalized by the patient): Male Sexual Orientation (if Verbalized by the Patient): Straight or Heterosexual Exam Const: General: healthy appearing Nutritional Appearance: well nourished Orientation/consciousness: patient oriented x3 Limitations: no limitations HENMT: Head: normal to inspection Eyes: Conjunctivae: conjunctivae normal Pupils: Equal, round and reactive pupils present Neck: Neck: normal visual inspection Chest: Chest palpation & inspection: normal inspection of the chest Resp: Effort & Inspection: normal respiratory effort Auscultation: clear to auscultation bilaterally Cardio: Rate: regular rate Rhythm: regular rhythm GI: Auscultation: normal bowel sounds Urinary Catheter: Urinary Catheter: patent and draining Back/Spine/Pelvis: Back: no CVA tenderness Skin: General skin exam: normal color Rashes: no rashes Neuro: General: patient oriented x3 Cranial nerves: Yes Nystagmus not present Extrem: General: normal to inspection Psych: Mental Status: mental status grossly normal Course Course Emergency Course: This is a 72-year-old gentleman with some no history of atrial fibrillation, nonsmoker nondrinker past medical history of hyperlipidemia and anxiety. EKG shows that he has atrial fibrillation with a rapid ventricular response this is new onset AFib, had blood work with negative troponin and negative D-dimer with BNP of 334, chest x-ray performed shows no acute cardiopulmonary process. Patient received a total of 20mg bolus of Cardizem heart rate from 175 down to 1 teens and will start a Cardizem drip and start patient on Lovenox. spoke to hospitalist at [place] which accepted the patient for transfer. Vital Signs Vital signs: Vital Signs Temperature 36.6 C 02/19/23 22:30 Pulse Rate 175 H 02/19/23 22:30 Respiratory Rate 20 02/19/23 22:30 Blood Pressure 159/87 H
[2023-02-20] MEDS: dilTIAZem 100 MG/100 ML 100 MG/100 ML BAG IV CONT (00:28)
[2023-02-20] MEDS: dilTIAZem HCl INJ 25 MG/5 ML VIAL 5 MG IV PUSH (00:28)
[2023-02-20] MEDS: APIXABAN 2.5 MG TABLET 5 MG PO (00:30)
--- NOTE | 2023-02-20 02:46 | PC.NURSE ---
Report given to [facility] for transfer. Pt stable at d/c c VSS, Afib on monitor c rate of 109.
== END 2023-02-20 02:49 | disposition short-term general hospital (02) ==
PROVIDERS: Emergency Provider Emergency Medicine; PCP Family Medicine
DX: I48.20 Chronic atrial fibrillation, unspecified (principal); R06.02 Shortness of breath; E78.5 Hyperlipidemia, unspecified; F41.9 Anxiety disorder, unspecified; F32.A Depression, unspecified; Z79.899 Other long term (current) drug therapy
CPT/HCPCS: 36415; 71045; 80053; 80307; 81003; 83690; 83880; 84443; 84484; 85025; 85380; 85610; 85730; 86140; 93005; 96365; 96366; 96376; 99285; A9270; J7040

== ENCOUNTER 2023-02-20 06:25 | Observation (INO) | payer MEDICARE, SELFPAY ==
[2023-02-20] VITALS (19 sets, daily range): BP systolic 99–116; BP diastolic 55–77; PULSE 52–124; RESP 17–20; TEMP 35.6–36.6; O2SAT 96–100; BMI 30.7
--- NOTE | 2023-02-20 | EST_ITS ---
Patient Info Name: Kendall Torres Age: 72 years : 1950 Gender: Male Ht: 68 in Wt: 201 lbs BSA: 2.12 m2 Exam Date: 02/20/2023 11:30 AM Exam Location: [facility] Stress Patient Status: Inpatient Admit Date: 02/20/2023 Staff Ordering Physician: Bill Armstrong DO Attending Provider: Tonya Romo MD Exercise Technologist: Elizabeth Corral RDCS Exercise Physician: Bill Armstrong DO Exam Type: CA stress judy w NM Study Info Indications I48.1 - Persistent atrial fibrillation A regadenoson stress test was performed. Summary 1. 1. Negative lexiscan stress test for ischemic ST changes by ECG criteria. 2. 2. Relative hypotension. 3. 3. Nuclear scan to follow and will be reported separately. Please correlate with it. 4. 4. Patient informed of the above results. Protocol: Lexiscan Stress ECG Details Stage: REST Duration (min): 0 min : 46 sec HR (bpm): 115 SBP (mmHg): 98 DBP (mmHg): 66 Stage: REST Duration (min): 10 min : 29 sec HR (bpm): 91 SBP (mmHg): 98 DBP (mmHg): 66 Stage: STAGE 1 Duration (min): 1 min : 0 sec HR (bpm): 109 SBP (mmHg): 86 DBP (mmHg): 66 Stage: RECOVERY Duration (min): 1 min : 0 sec HR (bpm): 122 SBP (mmHg): 87 DBP (mmHg): 66 Stage: RECOVERY Duration (min): 2 min : 0 sec HR (bpm): 124 SBP (mmHg): 87 DBP (mmHg): 66 Stage: RECOVERY Duration (min): 3 min : 0 sec HR (bpm): 136 SBP (mmHg): 88 DBP (mmHg): 65 Stage: RECOVERY Duration (min): 3 min : 13 sec HR (bpm): 120 SBP (mmHg): 88 DBP (mmHg): 65 Rest HR: 91 bpm Peak HR: 138 bpm Rest Sys BP: 98 mmHg Peak Sys BP: 88 mmHg Max Pred HR: 150 bpm % Max Pred HR: 92 % Target HR: 128 bpm Max RPP: 12,144 bpm*mmHg Termination Reason: Completed protocol Cardiac Symptoms: Shortness of breath Total Time: 1 min : 0 sec Rest Parra BP: 66 mmHg Peak Parra BP: 65 mmHg Total Dose: 0.4 mg Resting ECG Atrial fibrillation with variable heart rate. Stress ECG No ST changes. Arrhythmias No other. Report Signatures
--- NOTE | 2023-02-20 | ECHO_ITS ---
Patient Info Name: Kendall Torres Age: 72 years : 1950 Gender: Male Ht: 68 in Wt: 201 lbs BSA: 2.12 m2 HR: 104 bpm BP: 110 / 77 mmHg Heart Rhythm: Atrial Fibrillation Technical Quality: Fair Exam Date: 02/20/2023 9:30 AM Exam Location: [facility] Pulmonary Patient Status: Outpatient Admit Date: 02/20/2023 Staff Ordering Physician: Tonya Romo MD Professor Of Vegetable Science: Nataliya Graham RDCS Attending Provider: Tonya Romo MD Referring Physician: Demetrius MORENO; Exam Type: CA echo doppler color flow Study Info Indications - new onset afib Complete two-dimensional, color flow and Doppler transthoracic echocardiogram is performed. Summary 1. Complete two-dimensional, color flow and Doppler transthoracic echocardiogram is performed. 2. Left ventricular chamber dimension is normal. 3. Left ventricular systolic function is normal, estimated at 60-65%. 4. There is mild concentric increased left ventricular wall thickness. 5. The left ventricular diastolic function is abnormal. 6. E/e' 10 is mildly elevated. 7. Atrial fibrillation. 8. Left atrial chamber dimension is mildly enlarged. 9. There is trace mitral valve regurgitation. 10. There is trace tricuspid valve regurgitation. 11. No pulmonary hypertension, estimated pulmonary arterial systolic pressure is 29 mmHg. Left Ventricle E/e' 10 is mildly elevated. Atrial fibrillation. Left ventricular chamber dimension is normal. Left ventricular systolic function is normal, estimated at 60-65%. There is mild concentric increased left ventricular wall thickness. The left ventricular diastolic function is abnormal. Right Ventricle Right ventricular chamber dimension is normal. Right ventricular systolic function is normal. Left Atria Left atrial chamber dimension is mildly enlarged. Right Atria Right atrial chamber dimension is normal. Aortic Valve The aortic valve is trileaflet. There is no aortic valve stenosis. There is no aortic valve regurgitation. Pulmonic Valve There is no pulmonic regurgitation. Mitral Valve There is no mitral valve stenosis. There is trace mitral valve regurgitation. Tricuspid Valve There is trace tricuspid valve regurgitation. No pulmonary hypertension, estimated pulmonary arterial systolic pressure is 29 mmHg. Pericardium/Pleural There is no pericardial effusion. Inferior Vena Cava Normal inferior vena cava with >50% collapse upon inspiration consistent with normal right atrial pressure, 5 mmHg. Aorta The aortic root size at the sinus of Valsalva is normal. Left Ventricular Outflow Tract Name Value Normal LVOT 2D LVOT Diameter 2.0 cm LVOT Doppler LVOT Peak Gradient 1 mmHg LVOT Mean Gradient 1 mmHg LVOT VTI 14 cm LVOT VTI/AV VTI Ratio 0.9 LVOT Stroke Volume 47 ml LVOT CO 3.5 l/min LVOT CI 1.7 l/min/m2 Pulmonic Valve Name Value Normal
--- NOTE | ~2023-02-20 | NM_ITS ---
EXAMINATION: NM judy stress w perfusion DATE: 02/20/2023 13:21 INDICATION: Atrial fibrillation TECHNIQUE: Rest images were obtained following intravenous administration of 9.0 mCi Tc99m tetrofosmi n (Myoview). The patient was infused intravenously with Lexiscan (Regadenoson). Then, 29.4 mCi Tc99m tetrofosmin (Myoview) was administered intravenously, and stress images were obtained. Data was recon structed into short axis and horizontal and vertical long axis SPECT images. Gated SPECT images were also obtained. COMPARISON: None. FINDINGS: There is no definite reversible or fixed perfusion abnormality to suggest ischemia or infar ction. There is normal left ventricular chamber size, wall motion and ejection fraction. Left ventr icular ejection fraction measures 67%. IMPRESSION: 1. Normal myocardial perfusion at rest and during stress. 2. Left ventricular ejection fraction measuring 67%. Reviewed, dictated and finalized at location A.
--- NOTE | 2023-02-20 03:44 | ADMGEN ---
This patient, Kendall Torres, was admitted to IMU Room 210-01 on 02/20/23 at 0330. Patient/family oriented to hospital policies and general routines including ID bracelet, bed and alarms, visiting hours, pain management, procedures, bathroom and other care routines, personal items, smoking policy, room service/diet, and visiting hours. Information on how to activate the Rapid Response Team has been discussed. Patient/Family are encouraged to report perceived risks to care and to ask questions if they do not understand what they are told or what they should do.
--- NOTE | 2023-02-20 03:45 | PM.IMHP ---
H&P: HPI History of Present Illness Date/Time: 02/20/23 03:45 Chief Complaint: Palpitation Narrative: Patient is a 72-year-old male with past medical history of hyperlipidemia and depression coming in for palpitation. Patient Apparently was outdoors doing yard work and according to patient became overheated, came indoors felt a little clammy and noticedthat he was having palpitations. On initial presentation to the emergency department in [place] patient supposedly had heart rate of 175 and showed atrial fibrillation on telemetry. He was given Cardizem IV push 20 mg IV and started on Cardizem drip. Was also started on Eliquis. Patient had blood testing which showed normal TSH and troponin. His BNP was slightly elevated at over 300. Patient was referred to Cardiology and recommendation was to continue with the Cardizem drip, no indication for further antiarrhythmics including amiodarone as heart rate was already going down. Patient was transferred from [place] ER for further medical care. Patient currently seen in the room. He is awake, alert oriented x4. Appears comfortable and in no distress. He denies any chest pain, shortness of breath, fever or coughing. He still feels some palpitations. Denies any diarrhea, dysuria, suicidal or homicidal ideation. He denies a history of coronary artery disease, diabetes or CVA. No history of congestive heart failure. He says he was just seen by his PCP recently for his yearly checkup and was given a clean bill of health. No history of bleeding. Review of Systems Review of Systems: no fever or weight loss no vision changes, no eye discharge no throat pain, no hoarseness, no lymphadenopathy no chest pain, positive palpitations no coughing, no wheezing no abdominal pain, no diarrhea, no nausea, no vomiting no dysuria, no vaginal discharge no leg swelling, no edema no suicidal or homicidal ideation PMFSH Past Medical History Medical History Anxiety Hyperlipidemia Surgical History Surgical History Hx of cholecystectomy Social History Social History Social History: twin 12 year olds and one 8 y.o. child. Smoking status: Never smoker Alcohol intake: never Substance use: never Lack of Transportation: No Lack of Food: Never True Current Housing: I Have Housing Concerned About Future Housing: No Difficulty Paying Gas/Electric Bills: No Difficulty Paying for Meds: No Currently Unemployed: No Education: Decline to Answer Difficulty w/ Childcare or Family Care: No Gender identity (if verbalized by the patient): Male Sexual Orientation (if Verbalized by the Patient): Straight or Heterosexual Spiritual care concerns: No Meds Home Medications and Allergies Home Medications Medication Instructions Recorded Confirmed Type rosuvastatin 5 mg tablet (Crestor) 5 mg PO EVERY OTHER DAY 03/12/20 02/20/23 History escitalopram oxalate 20 mg tablet 20 mg PO HS 07/16/20 02/20/23 History Allergies Allergy/AdvReac Type Severity Reaction Status Date / Time No Known Allergies Allergy Verified 03/12/20 19:37 Exam Narrative: general- awake, alert, oriented, no distress heent- perrl, no nystagmus, no throat swelling, no dicharge chest- clear breath sounds, no wheezes, rales, no crackles heart- s1, s2, irregular rate and rhythm, no gallops or murmurs abdomen- soft, bowel sounds heard, no rebound or tenderness extremities- no edema or cyanosis psych- no suicidal or homicidal ideation neuro- moves all extremities, no focal neurologic deficit, mentation intact H&P: Results ECG Interpretation: Atrial fibrillation Imaging Chest x-ray: Radiologist's impression: EXAMINATION:? XR chest 1V portable IMPRESSION: No acute cardiopulmonary process. Bibasilar scar/atelectas
[2023-02-20] MEDS: dilTIAZem 100 MG/100 ML 100 MG/100 ML BAG IV CONT (05:12)
[2023-02-20 05:38] LABS: Troponin I 0.023 ng/mL (0.000-0.034)
--- NOTE | 2023-02-20 07:52 | PM.CNCAR ---
Assessment and Plan Assessment and plan (1) Atrial fibrillation with RVR: Code(s): I48.91 - Unspecified atrial fibrillation Status: Acute Assessment and Plan: Probably due to age. [id number] 1. On Diltiazem drip for rate control. Start Flecainide 100 mg every 12 hours. Start aspirin 325 mg daily. Obtain echo. Obtain lexiscan myoview stress test. If above tests are OK and HR is improved, anticipate he will be able to go home later today, and f/u with me in 1 week in [place] office. (2) Hyperlipidemia: Qualifiers: Hyperlipidemia type: unspecified Qualified Code(s): E78.5 - Hyperlipidemia, unspecified Code(s): E78.5 - Hyperlipidemia, unspecified Status: Acute Assessment and Plan: On Rosuvastatin. History of Present Illness History of Present Illness Consult date/time: 02/20/23 07:52 Reason For Visit: New Onset AFib w/RVR Narrative: 72 yr old man presented to [place] ER last night for palpitations. He has a history of dyslipidemia and anxiety. Reports he was out working in yard yesterday, felt overheated, came into house and felt rapid palpitations. He went to [place] ER and found to be in rapid atrial fibrillation. Started on Diltiazem drip and transferred here. Currently still in atrial fib. Normally he can walk a mile without any problems. Denies chest pain, sob, orthopnea, PND, edema, dizziness. Review of Systems Review of Systems: All systems reviewed & are unremarkable except as noted in HPI and below Cardiovascular: Cardiovascular: Reports as per HPI, Denies chest pain and Reports irregular heart rhythm Respiratory: Respiratory: Reports as per HPI and Denies dyspnea Gastrointestinal: Gastrointestinal: Reports as per HPI and Denies abdominal pain Genitourinary: Genitourinary: Reports as per HPI and Denies dysuria Musculoskeletal: Musculoskeletal: Reports as per HPI Neurologic: Reports as per HPI, Denies dizziness and Denies syncope [facility] Past Medical History Medical History Anxiety Hyperlipidemia Surgical History Surgical History Hx of cholecystectomy Social History Social History Social History: twin 12 year olds and one 8 y.o. child. Smoking status: Never smoker Alcohol intake: never Substance use: never Lack of Transportation: No Lack of Food: Never True Current Housing: I Have Housing Concerned About Future Housing: No Difficulty Paying Gas/Electric Bills: No Difficulty Paying for Meds: No Currently Unemployed: No Education: Decline to Answer Difficulty w/ Childcare or Family Care: No Gender identity (if verbalized by the patient): Male Sexual Orientation (if Verbalized by the Patient): Straight or Heterosexual Spiritual care concerns: No Meds Home Medications and Allergies Home Medications Medication Instructions Recorded Confirmed Type rosuvastatin 5 mg tablet (Crestor) 5 mg PO EVERY OTHER DAY 03/12/20 02/20/23 History escitalopram oxalate 20 mg tablet 20 mg PO HS 07/16/20 02/20/23 History Allergies Allergy/AdvReac Type Severity Reaction Status Date / Time No Known Allergies Allergy Verified 03/12/20 19:37 Vital Signs Vital Signs - 24 hr 02/20/23 03:55 02/20/23 03:56 02/20/23 04:00 Temperature 97.9 F Pulse Rate 110 H 114 H Respiratory Rate 17 Blood Pressure 110/77 Pulse Oximetry 100 Oxygen Delivery Room Air 02/20/23 05:12 02/20/23 06:00 Temperature Pulse Rate 118 H 104 H Respiratory Rate Blood Pressure Pulse Oximetry Oxygen Delivery Exam Const: General: cooperative, healthy appearing and comfortable Resp: Auscultation: clear to auscultation bilaterally, no crackles, no rales, no rhonchi and no wheezes Cardio: Rate: tachycardic Rhythm: abnormal rhythm Heart sounds: no murm
[2023-02-20] MEDS: FLECAINIDE ACETATE 50 MG TABLET PO ×2 (09:27→20:48)
[2023-02-20] MEDS: ASPIRIN 325 MG ENTERIC TABLET PO (09:27)
[2023-02-20] MEDS: dilTIAZem HCL 30 MG TABLET PO (13:27)
--- NOTE | 2023-02-20 13:48 | PC.NURSE ---
Spoke to Dr. Armstrong and Dr. Negron made them aware that the patients stated that the patient snores loudly, gasps for air multiple times during the night. Patient stated he had a sleep study years ago and was told he had sleep apnea then. Dr. Armstrong ordered an apnea link for tonight, followed by an out patient sleep study. Continue to monitor hypotension and HR.
--- NOTE | 2023-02-20 15:21 | WPDPN ---
Progress Note: A&P Assessment and Plan (1) Atrial fibrillation with RVR: Code(s): I48.91 - Unspecified atrial fibrillation Status: Inactive Assessment and Plan: -patient with new onset atrial fibrillation with RVR. Initially given Cardizem IV push 20 mg, transition to Cardizem IV drip 5 mg per hour. Will add diltiazem p.o. 30 q.i.d.. Monitor blood pressure to avoid hypotension. -patient with no history of hypertension, heart failure, diabetes or CVA, with age less than 75, technically chads score is 0 currently and does not qualify for full anticoagulation, can use only aspirin -will order echocardiogram to check ejection fraction -cardiology consult 02/20/2023 interval history: patient was seen by his test desk operator and his back into [facility], he is on Metoprolol 12.5mg BID, Flecainide 50mg PO q12, amd asprin, patient had cardiacecho, EF is 60-65% to further evaluate patient had lexiscan and its normal, patient remains clinically stable. (2) Hyperlipidemia: Qualifiers: Hyperlipidemia type: unspecified Qualified Code(s): E78.5 - Hyperlipidemia, unspecified Code(s): E78.5 - Hyperlipidemia, unspecified Status: Acute Assessment and Plan: -patient with hyperlipidemia, on rosuvastatin, says he just recently saw his primary care doctor, continue meds -LFTs okay (3) Anxiety: Code(s): F41.9 - Anxiety disorder, unspecified Status: Acute Assessment and Plan: Patient denies any suicidal or homicidal ideation, continue escitalopram Plan Await 2D echo Wean off Cardizem drip Await further Cardiology recommendation Full code Subjective Date/time seen: 02/20/23 15:21 Interval history: Palpitation Narrative: Patient is a 72-year-old male with past medical history of hyperlipidemia and depression coming in for palpitation.? Patient Apparently was outdoors doing yard work and according to patient became overheated, came indoors felt a little clammy and noticedthat he was having palpitations.? On initial presentation to the emergency department in [place] patient supposedly had heart rate of 175 and showed atrial fibrillation on telemetry.? He was given Cardizem IV push 20 mg IV and started on Cardizem drip.? Was also started on Eliquis.? Patient had blood testing which showed normal TSH and troponin.? His BNP was slightly elevated at over 300.? Patient was referred to Cardiology and recommendation was to continue with the Cardizem drip, no indication for further antiarrhythmics including amiodarone as heart rate was already going down.? Patient was transferred from [facility] for further medical care. Patient currently seen in the room.? He is awake, alert oriented x4.? Appears comfortable and in no distress.? He denies any chest pain, shortness of breath, fever or coughing.? He still feels some palpitations.? Denies any diarrhea, dysuria, suicidal or homicidal ideation.? He denies a history of coronary artery disease, diabetes or CVA.? No history of congestive heart failure.? He says he was just seen by his PCP recently for his yearly checkup and was given a clean bill of health.? No history of bleeding.? 02/20/2023 interval history: patient was seen by his test desk operator and his back into [facility], he is on Metoprolol 12.5mg BID, Flecainide 50mg PO q12, amd asprin, patient had cardiacecho, EF is 60-65% to further evaluate patient had lexiscan and its normal, patient remains clinically stable. Review of Systems Review of Systems: All systems reviewed & are unremarkable except as noted in HPI and below Exam Narrative: Patient is comfortable, NAD HEENT: eyes are clear and none icteric LUNGS:CTA HEART: RR S1S2 ABD: BS+, Soft and nontender Lower extremities: no edema SKIN: nonjaundiced Neuro: grossly intact. Objective Data Vital Signs Vital Signs: Vital Signs - 24 hr 02/20/23 03:55 02/20/23 03:56 02/20/23 04:00 Temperature 97.9 F Pulse Rate 110 H 114 H Respirat
--- NOTE | 2023-02-20 16:42 | ECG_ITS ---
Measurements Intervals [place] Rate: 51 P: 63 OR: 152 QRS: 43 QRSD: 95 T: 56 QT: 419 QTc: 386 Interpretive Statements SINUS BRADYCARDIA COMPARED TO ECG 02/19/2023 22:33:55 SINUS BRADYCARDIA REPLACES ATRIAL FIBRILLATION Electronically Signed On 02-21-2023 8:10:38 CDT by Franco Reyna M.D.
[2023-02-20] MEDS: ESCITALOPRAM OXALATE 10 MG TABLET 20 MG PO (20:48)
[2023-02-21] VITALS (7 sets, daily range): BP systolic 141–146; BP diastolic 71–74; PULSE 58–73; RESP 18–20; TEMP 36.2; O2SAT 98–100
--- NOTE | 2023-02-21 07:31 | PM.PNCARD ---
Progress Note: A&P Assessment and Plan (1) Atrial fibrillation with RVR: Code(s): I48.91 - Unspecified atrial fibrillation Status: Inactive Assessment and Plan: Back in sinus rhythm. Probably due to age or undiagnosed JOSE. [id number] 1. On Metoprolol Tartate 12.5 mg BID, Flecainide 50 mg every 12 hours and aspirin 325 mg daily. 02/20/23 Echo: EF 60-65%, mild LVH, diastolic dysfunction with E/e' 10, mild LAE, trace MR/TR. 02/20/23 Lexiscan myoview stress test is normal. Will need outpatient sleep study. May d/c home from cardiology standpoint and f/u with me in 1 week in [place] office. (2) Hyperlipidemia: Qualifiers: Hyperlipidemia type: unspecified Qualified Code(s): E78.5 - Hyperlipidemia, unspecified Code(s): E78.5 - Hyperlipidemia, unspecified Status: Acute Assessment and Plan: On Rosuvastatin. Subjective Date/time seen: 02/21/23 07:31 Interval history: He converted to sinus rhythm last evening. Feels he has more energy. Denies chest pain or sob. Exam Const: General: cooperative, healthy appearing and comfortable Orientation/consciousness: oriented to person, oriented to place and oriented to time Resp: Auscultation: clear to auscultation bilaterally, no crackles, no rales, no rhonchi and no wheezes Cardio: Rate: regular rate Rhythm: regular rhythm Heart sounds: no murmurs Peripheral pulses: dorsalis pedis present Neuro: General: oriented to person, oriented to place and oriented to time Extrem: Right lower extremity: no edema Left lower extremity: no edema Objective Data Vital Signs Vital Signs: Vital Signs - 24 hr 02/20/23 08:50 02/20/23 09:27 02/20/23 08:00 Temperature 96.7 F L Pulse Rate 124 H 113 H 113 H Respiratory Rate 20 Blood Pressure 99/62 L Pulse Oximetry 97 Oxygen Delivery 02/20/23 10:00 02/20/23 12:00 02/20/23 14:00 Temperature Pulse Rate 115 H 94 107 H Respiratory Rate Blood Pressure Pulse Oximetry Oxygen Delivery 02/20/23 16:00 02/20/23 08:00 02/20/23 12:00 Temperature Pulse Rate 92 Respiratory Rate Blood Pressure Pulse Oximetry Oxygen Delivery Room Air Room Air 02/20/23 16:00 02/20/23 17:11 02/20/23 18:00 Temperature 96.1 F L Pulse Rate 57 L 52 L Respiratory Rate 20 Blood Pressure 105/56 L Pulse Oximetry 96 Oxygen Delivery Room Air 02/20/23 20:48 02/20/23 20:00 02/20/23 20:00 Temperature 97.5 F L Pulse Rate 56 L 57 L 57 L Respiratory Rate 20 20 Blood Pressure 102/55 L Pulse Oximetry 97 97 Oxygen Delivery Room Air 02/20/23 20:00 02/20/23 21:52 02/20/23 22:34 Temperature 97.8 F Pulse Rate 58 L 56 L 57 L Respiratory Rate 20 Blood Pressure 116/69 Pulse Oximetry 97 Oxygen Delivery 02/20/23 22:15 02/20/23 23:00 02/21/23 00:00 Temperature Pulse Rate 57 L 58 L Respiratory Rate 20 Blood Pressure Pulse Oximetry 97 97 Oxygen Delivery Room Air Room Air 02/21/23 02:00 02/21/23 04:00 02/21/23 04:00 Temperature 97.1 F L Pulse Rate 64 73 61 Respiratory Rate 20 Blood Pressure 141/71 H Pulse Oximetry 98 Oxygen Delivery 02/21/23 04:00 02/21/23 05:19 Temperature Pulse Rate 61 72 Respiratory Rate 20 Blood Pressure Pulse Oximetry 98 Oxygen Delivery Room Air Intake/Output Intake/Output: Intake & Output 02/18/23 02/19/23 02/20/23 02/21/23 23:59 23:59 23:59 23:59 Intake Total 462 550 Output Total 400 340 Balance 62 210 Meds/Results Medications: Active Medications Generic Name Dose Route Start Last Admin Trade Name Freq PRN Reason Stop Dose Admin Acetaminophen 650 mg 02/20/23 03:58 Acetaminophen 325 Mg Tablet PO Q4H PRN Mild Pain (1-3) or Fever Al Hydrox/Mg Hydrox/Simethicone 30 ml 02/20/23 03:58 Mag Hydrox/Al Hydrox/Simeth 30 Ml Udc PO QID PRN Dyspepsia Aspirin 325 mg 02/20/23 09:00 02/20/23 09:27 Aspirin 325 Mg E
[2023-02-21] MEDS: METOPROLOL TARTRATE 12.5 MG TABLET PO (09:36)
[2023-02-21] MEDS: FLECAINIDE ACETATE 50 MG TABLET PO (09:36)
[2023-02-21] MEDS: ROSUVASTATIN 5 MG TABLET PO (09:36)
[2023-02-21] MEDS: ASPIRIN 325 MG ENTERIC TABLET PO (09:36)
--- NOTE | 2023-02-21 09:36 | PM.DS ---
DS: Admitting Diagnosis Discharge Date 02/21/2023 Admitting Diagnosis Papitation DS: Discharge Diagnosis Discharge Diagnosis (1) Atrial fibrillation with RVR: Code(s): I48.91 - Unspecified atrial fibrillation Status: Inactive Assessment and Plan: -patient with new onset atrial fibrillation with RVR. Initially given Cardizem IV push 20 mg, transition to Cardizem IV drip 5 mg per hour. Will add diltiazem p.o. 30 q.i.d.. Monitor blood pressure to avoid hypotension. -patient with no history of hypertension, heart failure, diabetes or CVA, with age less than 75, technically chads score is 0 currently and does not qualify for full anticoagulation, can use only aspirin -will order echocardiogram to check ejection fraction -cardiology consult 02/20/2023 interval history: patient was seen by his corporate associate attorney and his back into [facility], he is on Metoprolol 12.5mg BID, Flecainide 50mg PO q12, amd asprin, patient had cardiacecho, EF is 60-65% to further evaluate patient had lexiscan and its normal, patient remains clinically stable. (2) Hyperlipidemia: Qualifiers: Hyperlipidemia type: unspecified Qualified Code(s): E78.5 - Hyperlipidemia, unspecified Code(s): E78.5 - Hyperlipidemia, unspecified Status: Acute Assessment and Plan: -patient with hyperlipidemia, on rosuvastatin, says he just recently saw his primary care doctor, continue meds -LFTs okay (3) Anxiety: Code(s): F41.9 - Anxiety disorder, unspecified Status: Acute Assessment and Plan: Patient denies any suicidal or homicidal ideation, continue escitalopram Plan Await 2D echo Wean off Cardizem drip Await further Cardiology recommendation Full code DS: Summary Hospital Course Reason for hospitalization: Palpitation Narrative: Patient is a 72-year-old male with past medical history of hyperlipidemia and depression coming in for palpitation.? Patient Apparently was outdoors doing yard work and according to patient became overheated, came indoors felt a little clammy and noticedthat he was having palpitations.? On initial presentation to the emergency department in [place] patient supposedly had heart rate of 175 and showed atrial fibrillation on telemetry.? He was given Cardizem IV push 20 mg IV and started on Cardizem drip.? Was also started on Eliquis.? Patient had blood testing which showed normal TSH and troponin.? His BNP was slightly elevated at over 300.? Patient was referred to Cardiology and recommendation was to continue with the Cardizem drip, no indication for further antiarrhythmics including amiodarone as heart rate was already going down.? Patient was transferred from [facility] for further medical care. Patient currently seen in the room.? He is awake, alert oriented x4.? Appears comfortable and in no distress.? He denies any chest pain, shortness of breath, fever or coughing.? He still feels some palpitations.? Denies any diarrhea, dysuria, suicidal or homicidal ideation.? He denies a history of coronary artery disease, diabetes or CVA.? No history of congestive heart failure.? He says he was just seen by his PCP recently for his yearly checkup and was given a clean bill of health.? No history of bleeding.? Hospital Course: ?patient was seen by his corporate associate attorney and his back into [facility], he is on Metoprolol 12.5mg BID, Flecainide 50mg PO q12, amd asprin, patient had cardiacecho, EF is 60-65% to further evaluate patient had lexiscan and its normal, patient remains clinically stable. Today patient is clinically stable will discharge the patient today. Time Spent with Patient Time attestation: Total time spent providing and/or coordinating discharge services: Exam Narrative: Patient is comfortable, NAD HEENT: eyes are clear and none icteric LUNGS:CTA HEART: RR S1S2 ABD: BS+, Soft and nontender Lower extremities: no edema SKIN: nonjaundiced Neuro: grossly intact. Discharge Plan Discharge At
== END 2023-02-21 11:43 | disposition home or self-care (01) ==
PROVIDERS: Admitting Provider Internal Medicine; PCP Family Medicine; Visit Provider Family Medicine
DX: I48.91 Unspecified atrial fibrillation (principal); R79.89 Other specified abnormal findings of blood chemistry; R00.1 Bradycardia, unspecified; E78.5 Hyperlipidemia, unspecified; F41.9 Anxiety disorder, unspecified; F32.A Depression, unspecified; Z79.899 Other long term (current) drug therapy; Z90.49 Acquired absence of other specified parts of digestive tract
CPT/HCPCS: 36415; 78452; 84484; 93005; 93017; 93306; 94762; 96365; 96366; A9270; A9502; G0378; G0379; J2785

== ENCOUNTER 2023-11-11 11:15 | Outpatient (CLI) | payer MEDICARE, SELFPAY ==
[2023-11-11 11:30] LABS: Basophils Absolute Auto 0.03 K/mm3 (0.00-0.10); Basophils Percent Auto 0.4 % (0.0-1.0); Eosinophils Absolute Auto 0.25 K/mm3 (0.02-0.50); Hematocrit 43.4 % (37.0-46.0); Hemoglobin 14.3 g/dL (12.4-15.3); Immature Granulocyte Absolute 0.02 K/mm3 (0.00-0.00); Immature Granulocyte Percent A 0.2 % (0.0-0.0); Lymphocytes Absolute Auto 2.57 K/mm3 (1.10-4.50); Lymphocytes Percent Auto 30.9 % (18.0-42.0); Mean Corpuscular HGB Conc 32.9 g/dL (32-36); Mean Corpuscular Hemoglobin 29.2 pg (27.0-31.0); Mean Corpuscular Volume 88.8 fL (78.0-102.0); Mean Platelet Volume 8.1 fl (8.7-11.0); Monocytes Absolute Auto 0.64 K/mm3 (0.10-0.90); Monocytes Percent Auto 7.7 % (2.0-11.0); Neutrophils Absolute Auto 4.81 K/mm3 (1.70-7.20); Neutrophils Percent Auto 57.8 % (50.0-70.0); Platelet Count Result 288 K/mm3 (150-420); Red Blood Count 4.89 M/mm3 (4.70-6.10); Red Cell Distribution Width 12.6 % (11.6-14.4); White Blood Count 8.3 K/mm3 (4.8-10.8)
[2023-11-11 12:34] LABS: Alanine Aminotransferase 34 U/L (16-63); Alkaline Phosphatase 84 U/L (46-116); Anion Gap 8 mmol/L (8-16); Aspartate Amino Transferase 28 U/L (15-37); Bilirubin,Total 0.6 mg/dL (0.00-1.00); Blood Urea Nitrogen 11 mg/dL (7-18); Calcium 8.7 mg/dL (8.5-10.1); Carbon Dioxide 30 mmol/L (21-32); Chloride 102 mmol/L (98-108); Cholesterol 141 mg/dL (0-200); Estimated Glomerular Filt Rate > 60; Glucose 86 mg/dL (70-99); HDL Direct 40 mg/dL (40-60); LDL Cholesterol Calculated 78 mg/dL (<130); Osmolality Calculated 288 mOsm/kg (285-295); Potassium 4.4 mmol/L (3.5-5.1); Sodium 140 mmol/L (136-145); Triglycerides 114 mg/dL (0-150)
[2023-11-12 10:45] LABS: Free T3 2.51 pg/mL (2.18-3.98)
== END 2023-11-11 11:16 | disposition home or self-care (01) ==
LOC: CHSLAB 11:17
PROVIDERS: PCP Nurse Practitioner Family; Visit Provider Nurse Practitioner Family
DX: F41.9 Anxiety disorder, unspecified (principal); E78.5 Hyperlipidemia, unspecified; I48.0 Paroxysmal atrial fibrillation
CPT/HCPCS: 36415; 80053; 80061; 84439; 84443; 84481; 85025

== ENCOUNTER 2024-01-15 09:16 | Outpatient (CLI) | payer MEDICARE, SELFPAY ==
[2024-01-15 09:43] LABS: Hemoglobin A1C 5.6 % (<5.7)
[2024-01-15 11:09] LABS: Free T4 Free Thyroxine 0.66 ng/dL (0.76-1.46); Prostate Specific Antigen 4.2 ng/mL (< OR = 4.0); Thyroid Stimulating Hormone 1.08 uIU/mL (0.36-3.74)
== END 2024-01-15 09:17 | disposition home or self-care (01) ==
LOC: CHSLAB 09:18
PROVIDERS: PCP Nurse Practitioner Family; Visit Provider Nurse Practitioner Family
DX: Z12.5 Encounter for screening for malignant neoplasm of prostate (principal); Z13.1 Encounter for screening for diabetes mellitus; R79.89 Other specified abnormal findings of blood chemistry; F41.9 Anxiety disorder, unspecified; R00.1 Bradycardia, unspecified
CPT/HCPCS: 36415; 83036; 84153; 84439; 84443; G0103

== ENCOUNTER 2024-01-28 13:48 | Outpatient (CLI) | payer MEDICARE, SELFPAY ==
--- NOTE | 2024-01-28 13:52 | ECG_ITS ---
[address] Test Date: 2024-01-28 Pat Name: Kendall Torres Department: Room: Gender: Med Spa Manager: : 1950 Requested By: Bill Loredo Order Number: [id number] Reading MD: Bill Armstrong D.O. Measurements Intervals [place] Rate: 53 P: 67 [place]: 169 QRS: 59 QRSD: 92 T: 55 QT: 433 QTc: 409 Interpretive Statements SINUS BRADYCARDIA BORDERLINE ECG No previous ECG available for comparison Electronically Signed On 01-28-2024 14:06:32 CDT by Bill Armstrong D.O.
== END 2024-01-28 13:49 | disposition home or self-care (01) ==
LOC: CHSCARD 13:49
PROVIDERS: PCP Nurse Practitioner Family; Visit Provider Internal Medicine Cardiovascular Disease
DX: I48.0 Paroxysmal atrial fibrillation (principal); R00.1 Bradycardia, unspecified
CPT/HCPCS: 93005

== ENCOUNTER 2024-08-26 17:03 | Outpatient (CLI) | payer MEDICARE, SELFPAY ==
[2024-08-26 18:16] LABS: Prostate Specific Antigen 2.8 ng/mL (< OR = 4.0)
== END 2024-08-26 17:04 | disposition home or self-care (01) ==
LOC: CHSLAB 17:05
PROVIDERS: PCP Nurse Practitioner Family
DX: R97.20 Elevated prostate specific antigen [PSA] (principal)
CPT/HCPCS: 36415; 84153

== ENCOUNTER 2025-01-30 14:25 | Outpatient (CLI) | payer MEDICARE, SELFPAY ==
--- NOTE | 2025-01-30 14:29 | ECG_ITS ---
Test Date: 2025-01-30 14:44:23 Measurements Intervals [place] Rate: 53 P: 59 FL: 159 QRS: 29 QRSD: 95 T: 44 QT: 433 QTc: 407 Interpretive Statements SINUS BRADYCARDIA CONSIDER INFERIOR INFARCT, AGE INDETERMINATE ABNORMAL ECG Compared to ECG 01/28/2024 13:59:00 NO SIGNIFICANT CHANGE Electronically Signed On 01-31-2025 06:20:32 CDT by Bill Armstrong D.O.
== END 2025-01-30 14:26 | disposition home or self-care (01) ==
LOC: CHSCARD 14:26
PROVIDERS: PCP Nurse Practitioner Family; Visit Provider Internal Medicine Cardiovascular Disease
DX: I48.0 Paroxysmal atrial fibrillation (principal); R00.1 Bradycardia, unspecified; R94.31 Abnormal electrocardiogram [ECG] [EKG]
CPT/HCPCS: 93005

== ENCOUNTER 2025-05-04 07:48 | Outpatient (CLI) | payer MEDICARE, SELFPAY ==
--- OUTSIDE RECORDS SUMMARY | 2025-05-04 07:58 | XMS_ITS | Patient Health Record ---
Author Organization [facility] Address [address] [place] [address] Care Team Providers Care Station Baggage Porter Name Role Phone Avila Bernard Unavailable [phone] Reason For Referral No Information Medications Medication SIG (Take, Route, Frequency, Duration) Notes Start Date End Date Status Escitalopram Oxalate 20 MG Tablet Oral 06/26/2023 Active Aspirin 325 MG Tablet Oral 06/26/2023 Active Metoprolol Tartrate 25 MG Tablet Oral 06/26/2023 Active Flecainide Acetate 50 MG Tablet Oral 06/26/2023 Active Rosuvastatin Calcium 20 MG Tablet Oral 06/26/2023 Active LORazepam 1 MG Tablet 1 tablet Oral Once a day; Duration: 30 days As needed 04/22/2024 Active Escitalopram Oxalate 10 MG Tablet 1 tablet Oral Once a day; Duration: 90 days Active Immunizations Vaccine Route Administration Date Status Comme nts Influenza virus vaccine, quadrivalent (IIV4), split virus, 0.25 mL dosage Unknown 06/30/2018 Administered Influenza virus vaccine, quadrivalent (IIV4), split virus, 0.25 mL dosage Unknown 05/02/2019 Administered Influenza virus vaccine, quadrivalent (IIV4), split virus, 0.25 mL dosage Unknown 07/05/2019 Administered Influenza, unspecified formulation Unknown 06/09/2019 A dministered ToutpostntPotential Covid-19 Vac cine 2nd dose Unknown 12/23/2020 Administered Zoster Unknown 07/15/2022 Administered Social History Social History Additional Details Category Social Info Options Details Migrated Social History Migrated Social History Alcohol Intake: Occasional 05/03/2020,Tobacco Years: Never smoker 05/03/2020 Plan Of Treatment No Information Insurance Providers Payer Name Payer Address Payer Phone Subscriber Number Group Number Insured Name Patient Relationship to Insured Coverage Start Date Coverage End Date [employer] Medicare Replacement/ Advantage - Ppo [address] [address] [place] [address] [id number] ARMIN PARKINSON Self - patient is the insured Medical (General) History Surgical History Surgery Date(Month/Year) Cholecystectomy ([id number]) Removal of gallbladder (82352) 5
--- OUTSIDE RECORDS SUMMARY | 2025-05-04 07:58 | XMS_ITS | Clinical Summary ---
Author Organization [facility] Address [address] [place] [address] Care Team Providers Care Manager Of Organizational Development Name Role Phone ScottSylvie cedillo MELLY-RAMON Primary Care Provider Un available Source Comments [facility],non-owned Affiliates and Associated Physician Practices is amultiple site organization consisting of ambulatory clinics and hospital sitesin [place], [place], [place] and [place]. This disclosure is being madepursuant to the Care Everywhere program and may not contain all information available regarding this patient. Last updated 18.[facility] Allergies No known active allergies Medications * Be aware that medications may not be up to date on this document. Alwaysverify current medications with the patient. hydrOXYzine hcl (ATARAX) 50 MG tabletIndicatio ns:Sedated State Take 1 tablet by mouth every 8 hours as needed Reasons: State of Being Sedated 30 tablet 0 Active LORazepam (ATIVAN) 0.5 MG tablet Take 1 tablet by mouth every 6 hours as needed for Anxiety, Insomnia or Agitation 4 tablet 0 Active Social History Tobacco Use Types Packs/Day Years Used Date Smoking Tobacco: Never Smokeless Tobacco: Never Alcohol Use Standard Drinks/Week Comments Not Currently 0 (1 standard drink = 0.6 oz pur e alcohol) Sex and Gender Information Value Date Recorded Sex Assigned at Not on file Legal Sex Male 1:57 PM CDT Gender Identity Not on file Sexual Orientation Not on file Last Filed Vital Signs Vital Sign Reading Time Taken Comments Blood Pressure 156/101 05/01/2020 1:17 PM CDT Pulse 90 05/01/2020 1:17 PM CDT Temperature 36.9 C (98.4 F) 05/01/2020 1:17 PM CDT Respiratory Rate 16 05/01/2020 1:17 PM CDT Oxygen Saturation 99% 05/01/2020 1:17 PM CDT Inhaled Oxygen Concentration - - Weight 78.5 kg (173 lb) 05/01/2020 1:17 PM CDT Height 175.3 cm (5' 9) 05/01/2020 1:17 PM CDT Body Mass Index 25.55 05/01/2020 1:17 PM CDT Plan of Treatment Health Maintenance Due Date Last Done Comments COLOGUARD (AGES 45-75) - COL ON CA SCREENING 1950 COLON MONITORING 1950 COLONOSCOPY - COLON CA SCREENING 1950 CT COLONOGRAPHY - COLON CA SCREENING 1950 Colorectal Cancer Screening 1950 FIT - COLON CA SCREENING 1950 FLEX SIG - COLON CA SCREENING 1950 HEPATITIS C SCREENING 11/01/1970 DTAP/TDAP/TD VACCINES (1 - Tdap) 11/06/1971 PNEUMOCOCCAL VACCINE 50+ (1 of 1 - PCV) 2002 ZOSTER VACCINE (1 of 2) 2002 COVID-19 VACCINE (1 - 2023-2 5 season) 2024 DEPRESSION SCREENING 08/31/2024 LIPID TESTING 03/06/2025 03/06/2020 INFLUENZA VACCINE (#1) 2025 9, 06/09/2019, 06/30/2018 Respiratory Syncytial Virus (RSV) Vaccine Pt: or over 60 yrs (1 - 1-dose 75+ series) 11/06/2027 HEPATITIS B VACCINE Aged Out No longe r eligible based on patient's age to complete this topic HIB VACCINE Aged Out No longer eligi ble based on patient's age to complete this topic HPV VACCINE Aged Out No longer eligi ble based on patient's age to complete this topic MENINGOCOCCAL (Group B) VACCINE SHARED DECISION-MAKING Aged Out No longer eligible based on patient's age to complete this topic MENINGOCOCCAL GROUPS A/C/Y/W VACCINE Aged Out No longer eligible b ased on patient's age to complete [place] [address] Care Teams Manager Of Organizational Development Relationship Specialty Start Date End Date Sylvie Cantu APRN-RAMON PCP - General Nurse Practitioner 04/12/20
[2025-05-04 08:43] LABS: Hemoglobin A1C 5.8 % (<5.7)
[2025-05-04 08:47] LABS: Alanine Aminotransferase 20 U/L (6-50); Albumin Level 4.3 g/dL (3.5-5.1); Alkaline Phosphatase 66 U/L (38-126); Anion Gap 8 mmol/L (4-12); Aspartate Amino Transferase 31 U/L (17-59); Bilirubin,Total 0.8 mg/dL (0.2-1.3); Blood Urea Nitrogen 15 mg/dL (9-20); Calcium 9.6 mg/dL (8.4-10.2); Carbon Dioxide 29 mmol/L (22-30); Chloride 102 mmol/L (98-107); Cholesterol 153 mg/dL (0-200); Estimated Glomerular Filt Rate > 60; Glucose 98 mg/dL (65-110); HDL Direct 37 mg/dL; Osmolality Calculated 288 mOsm/kg (285-295); Potassium 4.8 mmol/L (3.4-5.0); Sodium 139 mmol/L (137-145); Total Protein 7.0 g/dL (6.3-8.2); Triglycerides 132 mg/dL (<150)
[2025-05-04 09:17] LABS: Prostate Specific Antigen 2.2 ng/mL (< OR = 4.0)
== END 2025-05-04 07:49 | disposition home or self-care (01) ==
LOC: CHSLAB 07:51
PROVIDERS: PCP Nurse Practitioner Family; Visit Provider Internal Medicine Cardiovascular Disease
DX: E78.5 Hyperlipidemia, unspecified (principal); Z13.1 Encounter for screening for diabetes mellitus; Z12.5 Encounter for screening for malignant neoplasm of prostate
CPT/HCPCS: 36415; 80053; 80061; 83036; 84153; G0103

== ENCOUNTER 2025-07-02 08:10 | Emergency (ER) | payer MEDICARE, SELFPAY ==
[2025-07-02] VITALS (11 sets, daily range): BP systolic 144–164; BP diastolic 80–131; PULSE 48–134; RESP 10–19; TEMP 37; O2SAT 96–100
--- NOTE | ~2025-07-02 | XR_ITS ---
Examination: XR chest 1V portable Clinical History: palpitations Comparison: 02/19/2023 Technique: Portable AP Findings: Heart size normal. Lungs clear. No acute bony abnormality. IMPRESSION: 1. No acute cardiopulmonary findings given portable technique. Reviewed, dictated and finalized at location R. LOOP MACHINE OPERATOR
--- NOTE | 2025-07-02 08:11 | ECG_ITS ---
Test Date: 2025-07-02 09:27:53 Measurements Intervals [place] Rate: 45 P: 66 ME: 183 QRS: 52 QRSD: 94 T: 60 QT: 432 QTc: 375 Interpretive Statements SINUS BRADYCARDIA WITH SINUS ARRHYTHMIA Compared to ECG 01/30/2025 14:44:23 Myocardial infarct finding no longer present Electronically Signed On 07-02-2025 14:16:31 NEGATIVE TURNER by Jamari Chaves M.D.
--- OUTSIDE RECORDS SUMMARY | 2025-07-02 08:13 | XMS_ITS | Patient Health Record ---
Author Organization [facility] Address [address] [place] [address] Care Team Providers Care Deli Bakery Clerk Name Role Phone Avila Bernard Unavailable [phone] Reason For Referral No Information Medications Medication [...] Vaccine Route Administration Date Status Comme nts Zoster Unknown 07/15/2022 Administered Garpun Covid-19 Vac cine 2nd dose Unknown 12/23/2020 Administered Influenza, unspecified formulation Unknown 06/09/2019 A dministered Influenza virus vaccine, quadrivalent (IIV4), split virus, 0.25 mL dosage Unknown 06/30/2018 Administered Influenza virus vaccine, quadrivalent (IIV4), split virus, 0.25 mL dosage Unknown 05/02/2019 Administered Influenza virus vaccine, quadrivalent (IIV4), split virus, 0.25 mL dosage Unknown 07/05/2019 Administered Social History Social History Additional Details [...] Medicare Replacement/ Advantage - Ppo [address] [address] [place] [address] [id number] ARMIN PARKINSON Self - patient is the insured Medical (General) History Surgical History Surgery Date(Month/Year) Cholecystectomy ([id number]) Removal of gallbladder (30321) 5
--- NOTE | 2025-07-02 08:21 | ED_ITS ---
HPI - Arrhythmia/Palpitations General Chief Complaint: Back Pain/Injury Stated Complaint: chest pain Source: patient Mode of arrival: ambulatory Limitations: no limitations History of Present Illness HPI narrative: Patient is a 74-year-old male with some palpitations this morning. Patient has a history of AFib back in 2022 and was admitted to [facility] for medical management. He was put on a beta-jamaica and high-dose aspirin with flecainide. He has not had a problem until today. No particular chest pain or shortness of breath. He does have some pain that is radiating into his shoulder blades in the back mildly. No associated nausea vomiting or diarrhea. MD complaint: rapid heart beat, heart racing, palpitations and irregular heart beat Onset (ago): hour(s) (2) Duration: constant Severity: moderate Context: occurred during rest Arrhythmia history: atrial fibrillation Associated symptoms: denies other symptoms Treatments prior to arrival: other (Patient on beta-jamaica and high-dose aspirin with flecainide) Related Data Home Medications ?Medication ?Instructions ?Recorded ?Confirmed ?Last Taken ?Type lorazepam 1 mg tablet 0.5 mg PO Q12H PRN anxiety 0 09/14/24 06/13/25 Unknown History metoprolol tartrate 25 mg tablet 12.5 mg PO DAILY 10/25 Unknown History Allergies Allergy/AdvReac Type Severity Reaction Status Date / Time No Known Allergies Allergy Verified 07/02/25 08:48 Review of Systems 2 Review of Systems: All systems reviewed & are unremarkable except as noted in HPI and below Constitutional: Constitutional: Reports no additional constitutional complaints Eyes: Eyes: Reports no additional eye complaints ENT: Reports system reviewed and no additional complaints, except as documented Cardiovascular: Cardiovascular: Reports no additional cardiovascular complaints Respiratory: Respiratory: Reports no additional respiratory complaints Gastrointestinal: Gastrointestinal: Reports no additional gastrointestinal complaints Genitourinary: Genitourinary: Reports no additional male genitourinary complaints Musculoskeletal: Musculoskeletal: Reports no additional musculoskeletal complaints Integumentary/Breasts: Skin/Breast: Reports system reviewed and no additional complaints, except as docu Neurologic: Reports system reviewed and no additional complaints, except as documented Psychiatric: Psychiatric: Reports no additional psychiatric complaints Endocrine: Endocrine: Reports no additional endocrine complaints Hematologic/Lymphatic: Hematologic/Lymphatic: Reports no additional hematologic/lymphatic complaints Allergic/Immunologic: Allergic/Immunologic: Reports no additional allergic/immunologic complaints [facility] Past Medical History Medical History Hypersomnia PAF (paroxysmal atrial fibrillation) Hyperlipidemia Anxiety Surgical History Surgical History Hx of cholecystectomy Social History Social History Social History: twin 12 year olds and one 8 y.o. child. Smoking status: Never smoker Alcohol intake: never Substance use: never Lack of Transportation: No Lack of Food: Never True Current Housing: I Have Housing Concerned About Future Housing: No Difficulty Paying Gas/Electric Bills: No Difficulty Paying for Meds: No Currently Unemployed: No Education: Decline to Answer Difficulty w/ Childcare or Family Care: No Gender identity (if verbalized by the patient): Male Sexual Orientation (if Verbalized by the Patient): Straight or Heterosexual Spiritual care concerns: No Exam 2 Const: General: healthy appearing and alert Nutritional Appearance: well nourished Orientation/consciousness: patient oriented x3 Limitations: no limitations HENMT: Head: normal to inspection Ears: external ears normal F joselyn/Nose/Sinus: Normal external nose present Eyes: Conjunctivae: conjunctivae normal Pupils: Equal, round and reactive pupils present EOM: EOMs intact bilaterally Neck: Neck: normal visual inspection Chest: Chest palpation & inspection: normal inspection of the chest Resp: Effort & Inspection: normal respiratory effort and not labored A uscultation: clear to auscultation bilaterally and no crackles Cardio: Rate: tachycardic Rhythm: abnormal rhythm irregularly irregular Heart sounds: no murmurs GI: Inspection: non-distended GI Palp: Yes Soft to palpation and No Tenderness to palpation present (GI) Auscultation: normal bowel sounds : General: Yes bladder normal to palpation Back/Spine/Pelvis: Back: no CVA tenderness Skin: General skin exam: normal color Rashes: no rashes Wounds: no wounds Neuro: General: patient oriented x3, moves all extremities and no meningeal signs Extrem: General: normal to inspection, no clubbing, cyanosis or edema and no pedal edema Psych: Mental Status: mental status grossly normal Affect: normal affect Attitude: cooperative Course Vital Signs Vital signs: Vital Signs Temperature 37.0 C 07/02/25 08:10 Pulse Rate 134 H 07/02/25 08:10 Respiratory Rate 12 07/02/25 08:10 Blood Pressure 164/119 H 07/02/25 08:10 Pulse Oximetry 100 07/02/25 08:10 Oxygen Delivery Room Air 07/02/25 08:10 Temperature 37.0 C 07/02/25 08:10 Pulse Rate 48 L 07/02/25 09:30 Respiratory Rate 11 L 07/02/25 09:30 Blood Pressure 146/82 H 07/02/25 09:01 Pulse Oximetry 98 07/02/25 09:30 Oxygen Delivery Room Air 07/02/25 08:10 MDM - Arrhythmia/Palpitations MDM Narrative Medical decision making narrative: Patient is a 74-year-old male with history of AFib here with AFib in RVR and palpitations. We will give patient Cardizem IV and IV fluids for now. Check labs. Chest x-ray. Initial EKG was done. Patient may need to be transferred for further medication adjustments to [facility]. He is not on an anticoagulation medication. Patient went back to normal sinus rhythm with his baseline bradycardia. Workup was essentially negative. PVCs have resolved. All symptoms have resolved. I discussed the case with his registered nurse hh case manager and the opinion was to continue aspirin and beta-jamaica with a increase of flecainide to 100 mg b.i.d.. They will see him this week for follow-up. Cardiology will further discuss blood thinners of anticoagulation at follow-up. Lab Data Attestation: I reviewed the patient's lab results. 07/02/25 08:21 07/02/25 08:20 Labs: Lab Results 07/02/25 07/02/25 07/02/25 Range/Units 08:20 08:21 08:44 WBC 8.5 (4.8-10.8) K/mm3 RBC 5.02 (4.70-6.10) M/mm3 Hgb 15.2 (12.4-15.3) g/dL Hct 45.0 (37.0-46.0) % MCV 89.6 (78.0-102.0) fL MCH 30.3 (27.0-31.0) pg MCHC 33.8 (32-36) g/dL RDW 12.5 (11.6-14.4) % Plt Count 279 (150-420) K/mm3 MPV 8.7 (8.7-11.0) fl Immature Gran % (Auto) 0.4 H (0.0-0.0) % Neut % (Auto) 49.2 L (50.0-70.0) % Lymph % (Auto) 39.4 (18.0-42.0) % Heard % (Auto) 8.0 (2.0-11.0) % Eos % (Auto) 2.5 (1.0-6.0) % Baso % (Auto) 0.5 (0.0-1.0) % Lymph # (Auto) 3.35 (1.10-4.50) K/mm3 Heard # (Auto) 0.68 (0.10-0.90) K/mm3 Eos # (Auto) 0.21 (0.02-0.50) K/mm3 Baso # (Auto) 0.04 (0.00-0.10) K/mm3 Abs Immat Gran (auto) 0.03 H (0.00-0.00) K/mm3 Absolute Neuts (auto) 4.20 (1.70-7.20) K/mm3 Absolute Nucleated RBC 0.00 (0.00-0.00) K/mm3 Nucleated RBC % 0.0 (0-0.0) % PT 11.1 (9.50-12.1) Seconds INR 1.0 APTT 27.9 (23.9-30.70) Sec Sodium 139 (137-145) mmol/L Potassium 3.5 (3.4-5.0) mmol/L Chloride 100 (98-107) mmol/L Carbon Dioxide 31 H (22-30) mmol/L Anion Gap 8 (4-12) mmol/L BUN 8 L D (9-20) mg/dL Creatinine 0.91 (0.7-1.3) mg/dL Estim Creat Clear Calc 73 ml/min Estimated GFR > 60 (59 - ) Glucose 110 (65-110) mg/dL Calculated Osmolality 287 (285-295) mOsm/kg Calcium 9.3 (8.4-10.2) mg/dL Magnesium 2.4 H (1.6-2.3) mg/dL Total Bilirubin 1.0 (0.2-1.3) mg/dL AST 39 (17-59) U/L ALT 27 (6-50) U/L Alkaline Phosphatase 92 (38-126) U/L Troponin I < 0.012 (0.000-0.034) ng/mL NT-Pro-B Natriuret Pep 282 H (19.9-100) pg/mL Total Protein 9.9 H (6.3-8.2) g/dL Albumin 4.8 (3.5-5.1) g/dL Urine Color Light yellow (Yellow) Urine Appearance Clear (Clear) Urine pH 7.5 (5.0-8.0) Ur Specific Encampment 1.010 (1.010-1.020) Urine Protein Negative (Negative) Urine Glucose (UA) Negative (Negative) Urine Ketones Negative (Negative) Ur Blood (Man) Trace-intact H (Negative) Urine Nitrate Negative (Negative) Urine Bilirubin Negative (Negative) Urine Urobilinogen 0.2 (0.2-1.0) mg/dL Leukocyte Esterase Rfl Negative (Negative) MARTIN/UL Imaging Data Attestation: I personally reviewed and interpreted this imaging study as follows: ECG Data EKG #1: Attestation: I personally reviewed and interpreted this ECG as follows: ECG completion date: 07/02/25 ECG completion time: 08:32 EKG Interpretation: tachycardia, atrial fibrillation, PVCs, non-specific ST changes, normal QRS, normal QT and NL axis EKG #2: Attestation: I personally reviewed and interpreted this ECG as follows: ECG completion date: 07/02/25 ECG completion time: 09:31 EKG Interpretation: bradycardia, sinus rhythm, no ectopy, non-specific ST changes, normal QRS, normal QT and NL axis Critical Care Time Critical Care Time Critical Care Time: Yes Total Critical Care Time: 35 Discharge Plan Discharge Clinical Impression: Atrial fibrillation with rapid ventricular response Patient Disposition: Home Condition: Stable Instructions: A-fib (Atrial Fibrillation) (ED) Additional Instructions: Please follow-up with the registered nurse hh case manager in the next week. They said to continue your aspirin and your metoprolol. We are going to increase her flecainide to 100 mg twice a day. It was at 50 mg daily. Patient Language: Vietnamese Prescriptions: New flecainide 100 mg tablet 100 mg PO BID Qty: 60 0RF No Action metoprolol tartrate 25 mg tablet 12.5 mg PO DAILY Rx Instructions: TAKE HALF A TABLET BY MOUTH TWICE A DAY aspirin 325 mg tablet,delayed release (DR/EC) 325 mg PO QAM Qty: 30 0RF lorazepam 1 mg tablet 0.5 mg PO Q12H PRN (Reason: anxiety) rosuvastatin 20 mg tablet 20 mg PO .EVERY OTHER DAY Qty: 60 2RF flecainide 50 mg tablet See Rx Instructions .ROUTE .COMPLEX Qty: 60 5RF Dose Instruction: TAKE ONE TABLET BY MOUTH EVERY TWELVE HOURS Rx Instructions: TAKE ONE TABLET BY MOUTH EVERY TWELVE HOURS escitalopram oxalate 20 mg tablet 20 mg PO HS Qty: 30 0RF Follow-up/Referrals: Rhonda Plummer BUILD TECHNICIAN [Advanced Practice Nurse, Family Practice] Time of Disposition: 09:20
[2025-07-02] MEDS: SODIUM CHLORIDE 0.9% IV 1,000 ML 999 ML IV CONT (08:23)
[2025-07-02 08:24] LABS: Hematocrit 45.0 % (37.0-46.0); Hemoglobin 15.2 g/dL (12.4-15.3); Immature Granulocyte Percent A 0.4 % (0.0-0.0); Lymphocytes Absolute Auto 3.35 K/mm3 (1.10-4.50); Mean Corpuscular HGB Conc 33.8 g/dL (32-36); Mean Corpuscular Hemoglobin 30.3 pg (27.0-31.0); Mean Corpuscular Volume 89.6 fL (78.0-102.0); Nucleated Red Blood Cells Absolute Auto 0.00 K/mm3 (0.00-0.00); Nucleated Red Blood Cells Perc 0.0 % (0-0.0); Platelet Count Result 279 K/mm3 (150-420); Red Blood Count 5.02 M/mm3 (4.70-6.10); White Blood Count 8.5 K/mm3 (4.8-10.8)
[2025-07-02 08:36] LABS: Alanine Aminotransferase 27 U/L (6-50); Albumin Level 4.8 g/dL (3.5-5.1); Alkaline Phosphatase 92 U/L (38-126); Anion Gap 8 mmol/L (4-12); Aspartate Amino Transferase 39 U/L (17-59); Bilirubin,Total 1.0 mg/dL (0.2-1.3); Blood Urea Nitrogen 8 mg/dL (9-20); Calcium 9.3 mg/dL (8.4-10.2); Carbon Dioxide 31 mmol/L (22-30); Chloride 100 mmol/L (98-107); Estimated CRCL calculation 73 ml/min; Estimated Glomerular Filt Rate > 60; Glucose 110 mg/dL (65-110); Magnesium 2.4 mg/dL (1.6-2.3); Osmolality Calculated 287 mOsm/kg (285-295); Potassium 3.5 mmol/L (3.4-5.0); Sodium 139 mmol/L (137-145); Total Protein 9.9 g/dL (6.3-8.2)
[2025-07-02 08:38] LABS: INR 1.0; Partial Thromboplastin Time 27.9 Sec (23.9-30.70); Prothrombin Time 11.1 Seconds (9.50-12.1)
--- OUTSIDE RECORDS SUMMARY | 2025-07-02 08:45 | XMS_ITS | Encounter Summary ---
Author Organization [facility] Address [facility] [place] [address] Care Team Providers Care Investor Relations Coordinator Name Role Phone Carolyn Snow MD Primary Care Provider Unavailab Carolyn Chong MD Unavailable Unavailable Carolyn Snow MD Unavailable Unavailable Iman Frankel MD Primary Care Provider [phone] Sylvie Cantu NP Primary Care Provider Gamal Duke MD Primary Care Provider [facility] Primary Care Provider [phone] Encounter Details Date Type Department Care Team (Late st Contact Info) Description 02/05/2019 Abstract [facility]FL CONVERSION [address] [place] [address] , Generic Conversion, Social History Tobacco Use Types Packs/Day Years Used Date Smoking Tobacco: Never Smokeless Tobacco: Never Alcohol Use Standard Drinks/Week Comments Yes 0 (1 standard drink = 0.6 oz pur e alcohol) rarely Sex and Gender Information Value Date Recorded Sex Assigned at Not on file Legal 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 Gender Identity Not on file Sexual Orientation Not on file 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 Not on file Not on file documented as of this encounter Plan of Treatment Upcoming Encounters Date Type Department Care Team (Late Contact Info) Description 09/04/2025 1:00 PM SUPERVISOR ELECTRON[employer] ASSEMBLY Office Visit [facility] Orthopedic & Sports Medicine - [place] [address] [place] [address] Kartik Archibald MD [address] [place] [address] documented as of this encounter Visit Diagnoses Not on filedocumented in this encounter Care Teams Investor Relations Coordinator Relationship Specialty Start Date End Date Carolyn Snow MD PCP - General INTERNAL MEDICINE 10/04/18 01/26/20 Carolyn Snow MD PCP - Med Group - [facility] Attributed Provider 10/29/18 03/16/19 Carolyn Snow MD PCP - Med Group - [facility] Attributed Provider 10/31/19 08/31/20 Iman Frankel MD PCP - General INTERNAL MEDICINE 01/27/20 03/13/20 Sylvie Cantu NP PCP - General NURSE PRACTITIONER 03/14/20 03/15/20 Gamal Frankel MD PCP - General INTERNAL MEDICINE 03/16/20 10/24/20 Kendall Day MD [address] [place] [address] PCP - General FAMILY PRACTICE 10/25/20 documented as of this encounter
--- OUTSIDE RECORDS SUMMARY | 2025-07-02 08:45 | XMS_ITS | Encounter Summary ---
Author Organization [facility] Address [facility] [place] [address] Care Team Providers Care Reefer Engineer Name Role Phone Kendall Day MD Primary Care Provider [phone] Encounter Details Date Type Department Care Team (Late st Contact Info) Description 10/10/2022 Dating [employer] Message [place] [phone] Len Dent III, MD [facility] [place] [address] Visit Follow Up Social History Tobacco Use Types Packs/Day Years Used Date Smoking Tobacco: Never Smokeless Tobacco: Never Alcohol Use Standard Drinks/Week Comments Yes 0 (1 standard drink = 0.6 oz pur e alcohol) rarely AUDIT-C Answer Date Recorded Frequency of Alcohol Consumption Monthly or less 03/20/2020 Average Number of Drinks 1 or 2 020 Frequency of Binge Drinking Never 03/01 PHQ-2 Answer Date Recorded PHQ-2 Score - If the patient scores above 3, please move on to questions 3-9 6 03/20/2020 Sex and Gender Information Value Date Recorded Sex Assigned at Not on file Legal Sex Male 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 No / Unsure 10/10/2022 3:42 PM GIRLS TENNIS COACH documented as of this encounter Plan of Treatment Upcoming Encounters Date Type Department Care Team (Late st Contact Info) Description 09/04/2025 1:00 PM GIRLS TENNIS COACH Office Visit [facility] Medical Group Orthopedic & Sports Medicine - [place] [address] [place] [address] Kartik Archibald MD [address] [place] [address] documented as of this encounter Visit Diagnoses Not on filedocumented in this encounter Additional Health Concerns Assessment Noted Time PHQ-9 Depression Total Score: 15 03/20/ 020 4:12 PM CDT documented as of this encounter Care Teams Reefer Engineer Relationship Specialty Start Date End Date Kendall Day MD [address] [facility] [place] [address] PCP - General FAMILY PRACTICE 10/25/20 documented as of this encounter
--- OUTSIDE RECORDS SUMMARY | 2025-07-02 08:45 | XMS_ITS | Encounter Summary ---
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 No / Unsure 02/04/2023 2:27 PM CDT documented as of this encounter Plan of Treatment Upcoming Encounters Date Type Department Care Team (Late st Contact Info) Description 09/04/2025 1:00 PM UNDERWRITING CLERKS SUPERVISOR Office Visit [facility] Medical Group Orthopedic & Sports Medicine - [place] [address] [place] [address] Kartik Archibald MD [address] [place] [address] documented as of this encounter Visit Diagnoses Not on filedocumented in this encounter Additional Health Concerns Assessment Noted Time PHQ-9 Depression Total Score: 15 03/20/2 020 4:12 PM CDT documented as of this encounter Care Teams Zoo Keeper Relationship Specialty Start Date End Date Kendall Day MD [address] [facility] [place] [address] PCP - General FAMILY PRACTICE 10/25/20 documented as of this encounter
--- OUTSIDE RECORDS SUMMARY | 2025-07-02 08:45 | XMS_ITS | Clinical Summary ---
Author Organization [facility] Address Formerly [facility] [place] [address] Care Team Providers Care Honeycomb Blanket Maker Name Role Phone Kendall Day MD Primary Care Provider [phone] Allergies Active Allergy Reactions Criticality Noted Date Comments Buspirone Unknown 05/07/2020 jolts Medications aspirin 81 MG tablet Take 1 tablet (81 mg total) by mouth daily. Active rosuvastatin 20 MG tabletIndication s:Hypercholester olemia TAKE HALF OF A TABLET BY MOUTH EVERY OTHER DAY 30 tablet 2 09/15/2019 Active escitalopram (LEXAPRO) 20 MG tablet 10/02/2022 Active LORazepam (ATIVAN) 1 MG tablet 11/06/2022 Active flecainide (TAMBOCOR) 50 MG tablet Take 1 tablet (50 mg total) by mouth 2 (two) times daily. 03/18/2025 Active metoprolol tartrate (LOPRESSOR) 25 MG tablet Take 1 tablet (25 mg total) by mouth 2 (two) times daily. 04/28/2025 Active Active Problems Problem Noted Date Diagnosed Date Primary osteoarthritis of right knee 05/09/2025 Umbilical hernia without obstruction and without gangrene 02/15/2019 Actinic keratoses 10/18/2018 Assessment & Plan (10/18/2018 2:55 PM ASPARAGUS CUTTER): Removed 3 today tolerated well Witnessed episode of apnea 10/04/2018 Assessment & Plan (10/04/2018 1:20 PM ASPARAGUS CUTTER): Will refer for sleep study Screening for prostate cancer 10/04/2018 Assessment & Plan (10/04/2018 1:22 PM ASPARAGUS CUTTER): His father had prostate ca and he gets screened annually Hypercholesterolemia 05/16/2014 Constipation 06/15/2013 Assessment & Plan (10/04/2018 2:23 PM ASPARAGUS CUTTER): Currently just trying to control with diet -try metamucil or miralax daily Insomnia Assessment & Plan (11/16/2018 12:53 PM CDT): Advised to take ambien earlier in night if still ends up taking it every night. Assessment & Plan (10/18/2018 2:55 PM ASPARAGUS CUTTER): Discussed trying to cut down dose of ambien and get off altogether. -Discussed proper sleep hygiene, try OTC melatonin Anxiety Assessment & Plan (11/16/2018 12:52 PM CDT): We are slowly weaning off the ativan with goal to get so just needing a handful of pills a month. He still had some from previous prescription left so had been breaking those in half prior to picking my script up so still has quite a bit left from recent 0.5mg script. -Decrease to 0.5 alternating with 0.25mg for one week then 0.25mg daily -Increase lexapro to 20mg -Next script when needs it should reflect 0.25mg daily PRN -Next step would be to cut back to 0.25mg daily PRN and only 20 tabs a month Assessment & Plan (10/18/2018 2:54 PM ASPARAGUS CUTTER): Discussed slow taper. Will go down to 0.5 tablet and try 1/2 to 1 tab daily PRN and reassess in 1 month -FU in 1 month -Con't lexapro 10 mg but if having trouble may need to inc to 20 mg Assessment & Plan (10/04/2018 2:25 PM ASPARAGUS CUTTER): Discussed use of ativan as not ideal. Per controlled substance use. Need his old records and for him to follow up again prior to filling. Reviewed IMDP -He has signed controlled substance contract -FU in 2 weeks will do a long taper off. Depression Encounters Date Type Department Care Team Description 06/12/[address] [address] [place] Dominguez, DO Question 05/09/2025 2:15 PM CDT Office Visit [address] [address] Clint Xiao FNP-BC Knee Pain (RIGHT) 05/09/2025 2:11 PM CDT - 05/09/2025 11:59 PM CDT Hospital Encounter [facility] [address] [place] [address] Clint Xiao FNP-BC Discharge Disposition: Home or Self Care (Routine Discharge) 05/09/2025 Travel 05/04/2025 Orders Only [address] [address] Clint Xiao FNP-BC 05/04/2025 Orders Only [address] [address] Clint Xiao FNP-BC from Last 3 Months Immunizations Immunization Administration Dates Next Due Influenza Adult (Generic) 07/05/2019,06/09/2019, 06/30/2018 Family History Medical History Relation Comments Cancer Father prostate Heart Attack Father Heart Disease Father Heart Disease Mother A-fib Hyperlipidemia Mother Hypertension Mother Relation Status Comments Father Mother Social History Tobacco Use Types Packs/Day Years [...] on file Legal Sex Male 10:14 PM ASPARAGUS CUTTER Gender Identity Not on file Sexual Orientation Not on file 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 file Not on file Last Filed Vital Signs Vital Sign Reading Time Taken Comments Blood Pressure 131/74 05/07/2020 4:00 PM CDT Pulse 63 05/07/2020 4:00 PM CDT Temperature 36.2 C (97.1 F) 04/12/2020 11:38 AM CDT Respiratory Rate 18 05/07/2020 4:00 PM CDT Oxygen Saturation 100% 05/07/2020 4:00 PM CDT Inhaled Oxygen Concentration - - Weight 95.3 kg (210 lb) 05/09/2025 2:11 PM CDT Height 175.3 cm (5' 9) 05/09/2025 2:11 PM CDT Body Mass Index 31.01 05/09/2025 2:11 PM CDT Plan of Treatment Upcoming Encounters Date Type Department Care Team (Late st Contact Info) Description 09/04/2025 1:00 PM ASPARAGUS CUTTER Office Visit [facility] Orthopedic & Sports Medicine - [place] [address] [place], [place] [phone] Kartik Archibald MD [address] [place] [address] Health Maintenance Due Date Last Done Comments Hepatitis C 1970 DTaP, Tdap and Td Vaccines (1 - Tdap) 11/06/1971 Pneumococcal Vaccine: 50+ Years (1 of 1 - PCV) 2002 Annual Medicare Wellness Visit 2017 Zoster Vaccines (2 of 3) 09/09/2022 07/15/2022 COVID-19 Vaccine (2 - season) 2025 12/23/2020 Influenza Adult (#1) 2025 07/05/2019, 06/09/2019, 05/02/2019, Additional history exists Colorectal Cancer Screening Colonoscopy (10 Years) 12/13/2025 12/14/2015 RSV Immunization or 60+ Years (1 - 1-dose 75+ series) 11/06/2027 Hepatitis A Vaccines Aged Out No long er eligible based on patient's age to complete this topic Meningococcal B Vaccine Aged Out No l onger eligible based on patient's age to complete this topic Meningococcal Vaccine Aged Out No owen scott eligible based on patient's age to complete this topic RSV Immunizations Under 20 Months Aged Out No longer eligible based on patient's age to complete this topic Procedures Procedure Name Priority Date/Time Associated Diagnosis Comments XR KNEE RT MIN 4V Routine 05/09/2025 2: 18 PM CDT Acute pain of right knee COLONOSCOPY GENERIC (SCAN ORDER) Routine 12/14/2015 from Last 3 Months or Most Recently Relevant to Health Maintenance Results * XR KNEE RT MIN 4V (05/09/2025 2:18 PM CDT) Anatomical Region Laterality Modality Knee Radiographic Anai ging 05/10/2025 2:52 PM CDT Impressions 05/10/2025 4:05 PM CDT IMPRESSION: 1. Mild bicompartmental osteoarthritis of the right knee. 2. Evidence of early osteoarthritis in the left knee. 3. No radiographic evidence to suggest acute fracture or dislocation. Dictated By: Tad Morin MD on 05/10/2025 2:52 PM The attending radiologist has reviewed the image(s) and agrees with the content of this report. Referred By: CLINT XIAO Interpreted By: Tad Morin MD, 05/10/2025 2:52 PM Narrative 05/10/2025 4:05 PM CDT [place] [id number] [facility] [address] [place] [address] [facility] [address] [facility] [address] [place] [address] XR KNEE RT MIN 4V: 05/09/2025 2:11 PM CLINICAL INDICATION: Right knee pain. No known injury. COMPARISON: Knees standing PA view 02/17/2023 TECHNIQUE: AP, sunrise, lateral, PA views of the right knee. Single PA view of the left knee. FINDINGS: Right knee: There is a trace joint effusion. No radiographic evidence of acute fracture or dislocation. There is mild bony prominence about the medial femoral epicondyle which is nonspecific however could relate to remote trauma or ligamentous injury. There is mild medial compartment joint space narrowing with osteophyte production, and mild sharpening of the tibial spines. The lateral compartment joint space appears largely preserved. There are small osteophytes on the patellofemoral compartment. Left knee: On this single PA view of the left knee there is no radiographic evidence to suggest acute fracture or dislocation. There is sharpening of the tibial spines. Procedure Note Luc Cadena MD - 05/10/2025 [facility] [address] [place] [address] [place] [id number] [place] [address] XR KNEE RT MIN 4V: 05/09/2025 2:11 PM CLINICAL INDICATION: Right knee pain. No known injury. COMPARISON: Knees standing PA view 02/17/2023 TECHNIQUE: AP, sunrise, lateral, PA views of the right knee. Single PAview of the left knee. FINDINGS: Right knee: There is a trace joint effusion. No radiographic evidence ofacute fracture or dislocation. There is mild bony prominence about themedial femoral epicondyle which is nonspecific however could relate toremote trauma or ligamentous injury. There is mild medial compartmentjoint space narrowing with osteophyte production, and mild sharpening ofthe tibial spines. The lateral compartment joint space appears largelypreserved. There are small osteophytes on the patellofemoralcompartment. Left knee: On this single PA view of the left knee there is noradiographic evidence to suggest acute fracture or dislocation. There issharpening of the tibial spines. IMPRESSION: 1. Mild bicompartmental osteoarthritis of the right knee. 2. Evidence of early osteoarthritis in the left knee. 3. No radiographic evidence to suggest acute fracture or dislocation. Dictated By: Tad Morin MD on 05/10/2025 2:52 PM The attending radiologist has reviewed the image(s) and agrees with thecontent of this report. Referred By: CLINT XIAO Interpreted By: Tad Morin MD, 05/10/2025 2:52 PM us Clint Xiao ASSURANCE SENIOR MANAGER INSURANCE-BC GENERAL IMAGING Final Resu lt * COLONOSCOPY (12/14/2015) us Documents Scanned SCANNING Final Result from Last 3 Months or Most Recently Relevant to Health Maintenance Insurance [employer] MEDICARE Care Teams Honeycomb Blanket Maker Relationship Specialty Start Date End Date Kendall Day MD [address] [place] [address] PCP - General FAMILY PRACTICE 10/25/20
[2025-07-02 08:47] LABS: NT Pro B Type Natriuretic Pept 282 pg/mL (19.9-100); Troponin I < 0.012 ng/mL (0.000-0.034)
[2025-07-02 08:52] LABS: Add Urine Microscopic? NO; Appearance Urine Clear (Clear); Glucose Urine UA Negative (Negative); Leukocyte Esterase Ur Negative LEU/UL (Negative); Nitrate Urine Negative (Negative); Specific Grav Ur 1.010 (1.010-1.020)
--- NOTE | 2025-07-02 09:22 | ECG_ITS ---
Test Date: 2025-07-02 08:15:52 Measurements Intervals [place] Rate: 146 P: 0 MO: 0 QRS: 55 QRSD: 110 T: 52 QT: 310 QTc: 484 Interpretive Statements ATRIAL FIBRILLATION WITH RAPID VENTRICULAR RESPONSE WITH ABERRANT CONDUCTION OR VENTRICULAR PREMATURE COMPLEXES MODERATE ST DEPRESSION [0.05+ mV ST DEPRESSION] Compared to ECG 01/30/2025 14:44:23 Ventricular premature complex(es) now present Aberrant conduction of supraventricular beat(s) now present ST (T wave) deviation now present Sinus bradycardia no longer present Myocardial infarct finding no longer present Electronically Signed On 07-03-2025 09:30:51 ACCESS DEVELOPER by Bry Stovall M.D.
--- NOTE | 2025-07-02 10:15 | PC.NURSE ---
On 07/02/25, the student, [skinny davenport ], provided care and completed [facility] on this patient. I have reviewed the student's documentation and agree with the findings.
== END 2025-07-02 10:00 | disposition home or self-care (01) ==
PROVIDERS: Emergency Provider Emergency Medicine; PCP Nurse Practitioner Family
DX: I48.20 Chronic atrial fibrillation, unspecified (principal); Z79.899 Other long term (current) drug therapy; Z79.82 Long term (current) use of aspirin
CPT/HCPCS: 36415; 71045; 80053; 81003; 83735; 83880; 84484; 85025; 85610; 85730; 93005; 96361; 96374; 99284; J1163; J7030

== ENCOUNTER 2025-08-12 09:41 | Outpatient (CLI) | payer MEDICARE, SELFPAY ==
--- OUTSIDE RECORDS SUMMARY | 2025-08-12 09:46 | XMS_ITS | Patient Health Record ---
Author Organization [facility] Address [address] [place] [address] Care Team Providers Care Stitching Machine Feeder Or Offbearer Name Role Phone Avila Bernard Unavailable [phone] Reason For Referral No Information Medications Medication [...] Influenza, unspecified formulation Unknown 06/09/2019 A dministered TelinetntAFINOS Covid-19 Vac cine 2nd dose Unknown 12/23/2020 [...] Medicare Replacement/ Advantage - Ppo [address] [address] [place] [address] [id number] ARMIN PARKINSON Self - patient is the insured Medical (General) History Surgical History Surgery Date(Month/Year) Cholecystectomy ([id number]) Removal of gallbladder (17611) 5
--- OUTSIDE RECORDS SUMMARY | 2025-08-12 09:46 | XMS_ITS | Clinical Summary ---
Author Organization [facility] Address [address] [place] [address] Care Team Providers Care Assistant Laboratory Director Name Role Phone ScottSylvie cedillo MELLY-RAMON Primary Care Provider Un available Source Comments [facility],non-owned Affiliates and Associated Physician Practices is amultiple site organization consisting of ambulatory clinics and hospital sitesin [place], [place], [place] and [place]. This disclosure is being madepursuant to the Care Everywhere program and may not contain all information available regarding this patient. Last updated 18.[facility] Allergies No known active allergies Medications * [...] FLEX SIG - COLON CA SCREENING 1950 LIPID TESTING 1950 HEPATITIS C SCREENING 11/01/1970 DTAP/TDAP/TD VACCINES (1 - Tdap) 11/06/1971 PNEUMOCOCCAL VACCINE 50+ (1 of 1 - PCV) 2002 ZOSTER VACCINE (1 of 2) 2002 DEPRESSION SCREENING 08/31/2024 COVID-19 VACCINE (1 - 2024-2 6 season) 2025 INFLUENZA VACCINE (#1) 2025 9, 06/09/2019, 06/30/2018 [...] patient's age to complete this topic Insurance Care Teams Assistant Laboratory Director Relationship Specialty Start Date End Date Sylvie Cantu APRN-AIRCRAFT DELIVERY CHECKER PCP - General Nurse Practitioner 04/12/20
--- OUTSIDE RECORDS SUMMARY | 2025-08-12 09:47 | XMS_ITS | Clinical Summary ---
Author Organization [facility] Address [facility] [place] [address] Care Team Providers Care Dental Claims Processor Name Role Phone Kendall Day MD Primary Care Provider [phone] Allergies Active Allergy Reactions Criticality Noted Date [...] 10/18/2018 Assessment & Plan (10/18/2018 2:55 PM ARMATURE CONNECTOR): Removed 3 today tolerated well Witnessed episode of apnea 10/04/2018 Assessment & Plan (10/04/2018 1:20 PM ARMATURE CONNECTOR): Will refer for sleep study Screening for prostate cancer 10/04/2018 Assessment & Plan (10/04/2018 1:22 PM ARMATURE CONNECTOR): His father had prostate ca and he gets screened annually Hypercholesterolemia 05/16/2014 Constipation 06/15/2013 Assessment & Plan (10/04/2018 2:23 PM ARMATURE CONNECTOR): Currently just trying to control with diet -try metamucil or miralax daily Insomnia Assessment & Plan (11/16/2018 12:53 PM CDT): Advised to take ambien earlier in night if still ends up taking it every night. Assessment & Plan (10/18/2018 2:55 PM ARMATURE CONNECTOR): Discussed trying to cut down dose of [...] month Assessment & Plan (10/18/2018 2:54 PM ARMATURE CONNECTOR): Discussed slow taper. Will go down to 0.5 tablet and try 1/2 to 1 tab daily PRN and reassess in 1 month -FU in 1 month -Con't lexapro 10 mg but if having trouble may need to inc to 20 mg Assessment & Plan (10/04/2018 2:25 PM ARMATURE CONNECTOR): Discussed use of ativan as not ideal. Per controlled substance use. Need his old records and for him to follow up again prior to filling. Reviewed IMDP -He has signed controlled substance contract -FU in 2 weeks will do a long taper off. 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 file Not on file Not [...] st Contact Info) Description 09/04/2025 1:00 PM ARMATURE CONNECTOR Office Visit [facility] - [place] [address] [place] [address] Kartik Archibald MD [address] [place] [address] Health Maintenance Due Date Last Done Comments [...] this topic Meningococcal Vaccine Aged Out No oewn scott eligible based on patient's age to complete this topic RSV Immunizations Under 20 Months Aged Out No longer eligible based on patient's age to complete this topic Procedures Procedure Name Priority Date/Time Associated Diagnosis Comments COLONOSCOPY GENERIC (SCAN ORDER) Routine 12/14/2015 from Last 3 Months or Most Recently Relevant to Health Maintenance Results * COLONOSCOPY (12/14/2015) us Documents Scanned SCANNING Final Result from Last 3 Months or Most Recently Relevant to Health Maintenance Insurance [employer] MEDICARE Care Teams Dental Claims Processor Relationship Specialty Start Date End Date Kendall Day MD [address] [place] [address] PCP - General FAMILY PRACTICE 10/25/20
--- OUTSIDE RECORDS SUMMARY | 2025-08-12 09:47 | XMS_ITS | Clinical Summary ---
Author Organization [facility] Address [address] [place] [address] Care Team Providers Care Production Machine Operator Name Role Phone Unavailable Primary Care Provider Unavailabl e Social History Tobacco Use Types Packs/Day Years Used Date Smoking Tobacco: Never Assessed Sex and Gender Information Value Date Recorded Sex Assigned at Not on file Legal Sex Male 12:31 PM EDT Gender Identity Not on file Sexual Orientation Not on file Plan of Treatment Not on file Medical Devices Not on file
--- OUTSIDE RECORDS SUMMARY | 2025-08-12 09:47 | XMS_ITS | Encounter Summary ---
Author Organization [facility] Address [facility] [place] [address] Care Team Providers Care Pump Operator Byproducts Name Role Phone Carolyn Snow MD Primary Care Provider Unavailab Carolyn Chong MD Unavailable Unavailable Carolyn Snow MD Unavailable Unavailable Iman Frankel MD Primary Care Provider [phone] Sylvie Cantu NP Primary Care Provider Gamal Duke MD Primary Care Provider [facility] Primary Care Provider [phone] Encounter Details Date Type Department Care Team (Late st Contact Info) Description 02/05/2019 Abstract [facility] [address] [place] [address] , Generic Conversion, Social History Tobacco Use Types Packs/Day Years Used Date Smoking Tobacco: Never Smokeless Tobacco: Never Alcohol Use Standard Drinks/Week Comments Yes 0 (1 standard drink = 0.6 oz pur e alcohol) rarely Sex and Gender Information Value Date Recorded Sex Assigned at Not on file Legal Sex Male 10:14 PM NEWS DIRECTOR Gender Identity Not on file Sexual Orientation Not on file 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 Date 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 on file Not on file documented as of this encounter Plan of Treatment Upcoming Encounters Date Type Department Care Team (Late Contact Info) Description 09/04/2025 1:00 PM NEWS DIRECTOR Office Visit [facility] - [place] [address] [place] [address] Kartik Archibald MD [address] [place] [address] documented as of this encounter Visit Diagnoses Not on filedocumented in this encounter Care Teams Pump Operator Byproducts Relationship Specialty Start Date End Date Carolyn Snow MD PCP - General INTERNAL MEDICINE 10/04/18 01/26/20 Carolyn Snow MD PCP - Med Group - [facility] Attributed Provider 10/29/18 03/16/19 Carolyn Snow MD PCP - Med Group - [facility] Attributed Provider 10/31/19 08/31/20 Iman Frankel MD PCP - General INTERNAL MEDICINE 01/27/20 03/13/20 Sylvie Cantu NP PCP - General NURSE PRACTITIONER 03/14/20 03/15/20 Gamal Frankel MD PCP - General INTERNAL MEDICINE 03/16/20 10/24/20 Kendall Day MD [address] [place] [address] PCP - General FAMILY PRACTICE 10/25/20 documented as of this encounter
--- OUTSIDE RECORDS SUMMARY | 2025-08-12 09:47 | XMS_ITS | Encounter Summary ---
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 No / Unsure 10/10/2022 3:42 PM RETAIL EQUIPMENT ASSOCIATE documented as of this encounter Plan of Treatment Upcoming Encounters Date Type Department Care Team (Late st Contact Info) Description 09/04/2025 1:00 PM RETAIL EQUIPMENT ASSOCIATE Office Visit [facility] Medical [facility] Orthopedic & Sports Medicine - [place] [address] [place] [address] Kartik Archibald MD [address] [place] [address] documented as of this encounter Visit Diagnoses Not on filedocumented in this encounter Additional Health Concerns Assessment Noted Time PHQ-9 Depression Total Score: 15 03/20/ 020 4:12 PM CDT documented as of this encounter Care Teams Computer Programming Professor Relationship Specialty Start Date End Date Kendall Day MD [address] [place] [address] PCP - General FAMILY PRACTICE 10/25/20 documented as of this encounter
--- OUTSIDE RECORDS SUMMARY | 2025-08-12 09:47 | XMS_ITS | Encounter Summary ---
Author Organization [facility] Address [facility] [place] [address] Care Team Providers Care Claim Rep Name Role Phone Kendall Day MD Primary Care Provider [phone] Encounter Details Date Type Department Care Team (Late st Contact Info) Description 02/17/2023 TwoTen Message Enc [facility] [place] [address] Armando Lawrence MD [address] [place] [address] Visit Follow Up Social History Tobacco Use [...] on file Legal Sex Male 10:14 PM COMMODITY SUPERVISOR Gender Identity Not on file Sexual Orientation Not on file 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 Date 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 Not on file [...] st Contact Info) Description 09/04/2025 1:00 PM COMMODITY SUPERVISOR Office Visit [facility] Medical Group Orthopedic & Sports Medicine - [place] [address] [place] [address] Kartik Archibald MD [address] [place] [address] documented as of this encounter Visit Diagnoses Not on filedocumented in this encounter Additional Health Concerns Assessment Noted Time PHQ-9 Depression Total Score: 15 03/20/2 020 4:12 PM CDT documented as of this encounter Care Teams Claim Rep Relationship Specialty Start Date End Date Kendall Day MD [address] [place] [address] PCP - General FAMILY PRACTICE 10/25/20 documented as of this encounter
[2025-08-12 11:07] LABS: Prostate Specific Antigen 2.2 ng/mL (< OR = 4.0)
== END 2025-08-12 09:42 | disposition home or self-care (01) ==
LOC: CHSLAB 09:42
PROVIDERS: PCP Nurse Practitioner Family; Visit Provider Urology
DX: R97.20 Elevated prostate specific antigen [PSA] (principal); Z12.5 Encounter for screening for malignant neoplasm of prostate
CPT/HCPCS: 36415; 84153; G0103